=== PATIENT | female | born 2005 | race Caucasian/White ===

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

== ENCOUNTER 2023-06-09 10:32 | Inpatient (IN) | payer BC, SELFPAY ==
[2023-06-09 10:50] VITALS: BP 118/79; PULSE 89; RESP 18; TEMP 36.9; O2SAT 98; BMI 32.2
[2023-06-09 11:41] LABS: Basophils # 0.1 10^3/uL (0.0-0.1); Basophils % 0.4 %; Eosinophils # 0.1 10^3/uL (0.0-0.8); Eosinophils % 0.7 %; Hematocrit 39.4 % (36-47); Lymphocytes # 2.8 10^3/uL (1.5-6.5); Lymphocytes % 20.5 %; Mean Corpuscular HGB Conc 34.3 g/dL (30-55); Mean Corpuscular Hemoglobin 31.7 pg (27-33); Mean Corpuscular Volume 92.5 fl (85-98); Monocytes # 0.6 10^3/uL (0.2-0.9); Monocytes % 4.2 %; Neutrophils # 10.13 10^3/uL (1.8-8.0); Neutrophils % 73.8 %; Nucleated Red Blood Cells % 0 %; Platelet Count 404 10^3/cmm (157-399); Red Blood Count 4.26 10^6/uL (3.85-5.65); Red Cell Distribution Width 11.6 % (12.1-15.1); White Blood Count 13.73 10^3/uL (4.5-13.0)
[2023-06-09 11:57] LABS: Alanine Aminotransferase 172 U/L (0-33); Alkaline Phosphatase 171 U/L (35-105); Anion Gap 14.2 (5-19); Aspartate Amino Transferase 69 U/L (0-32); Blood Urea Nitrogen 10 mg/dL (6-20); Carbon Dioxide 27 mmol/L (22-29); Chloride 102 mmol/L (98-107); Globulin 3.2 g/dL (1.3-4.6); Glomerular Filtration Rate 157.3 mL/min (90-130); Glucose 90 mg/dL (65-115); Lipase 16 U/L (13-60); Osmolality Calculated 287 mOsm/kg (285-295); Potassium 4.2 mmol/L (3.5-5.1); Sodium 139 mmol/L (136-145); Total Bilirubin 0.3 mg/dL (0.15-1.2); Total Protein 8.2 g/dL (6.6-8.7)
[2023-06-09 11:58] LABS: HCG, Serum Qual Negative (Negative)
--- NOTE | 2023-06-09 12:00 | W.ED.ABDPA2 ---
HPI - Abdominal Pain General: Chief Complaint: Abdominal Pain Stated Complaint: physician sent, appendix Time Seen by Provider: 06/09/23 12:00 Source: patient Mode of arrival: ambulatory History of Present Illness: 18-year-old female presents emergency room complaining of right-sided abdominal pain. She has had this intermittently for weeks progressively worse and is worse when she eats anything. No dysuria urgency or frequency no vomiting no diarrhea no fever sweats or chills. No previous abdominal surgeries patient is her last delivery was approximately 5 months ago. MD elicited complaint: abdominal pain Onset (ago): week(s) (1) Location: RUQ and RLQ Severity: moderate Quality: cramping Exacerbating factors: eating Associated Symptoms: Reports anorexia, bloating, GI cramping, nausea and poor appetite; Denies belching, change in bowel habits, change in stool character, chills, coffee ground emesis, constipation, diarrhea, dyspepsia, dysuria, excessive flatus, fever(s), heartburn, hematochezia, hematuria, hematemesis, fecal incontinence, loose stools, melena, syncope, vomiting and other Related Data: Date of Last Menstrual Period: 02/10/23 Review of Systems Const: Denies: fever(s), chills, fatigue or malaise ENMT: Denies: throat pain, ear or mastoid pain, nasal discharge or nasal congestion Card: Denies: chest pain or syncope Resp: Denies: dyspnea, productive cough or non-productive cough GI: Reports: abdominal pain, nausea, bloating and GI cramping; Denies: vomiting, hematemesis, coffee ground emesis, heartburn, diarrhea, constipation, belching, excessive flatus, fecal incontinence, change in bowel habits, change in stool character, hematochezia, melena or other : Denies: dysuria, urinary frequency, urinary urgency or hematuria Skin/Breast: Denies: rash or pruritus PFSH ED PFSH: Medical History (Updated 06/14/23 @ 07:01 by Mihir Roman DO) Acute abdominal pain Family History Grandmother Cancer Breast Cancer Social History Smoking and tobacco status: never smoked Second hand smoke exposure: No Smoking risk assessment/counseling performed?: No Alcohol intake: never Desire information about alcohol rehabilitation?: No Counseling given: No Substance/Drug Use: never Desire information about substance/drug rehabilitation?: No Counseling given: No Adopted: No Caregiver/support person: No Lives independently: Yes Household members: friend(s) Housing: Manufactured/Mobile home Marital status: Single Number of children: 1 Highest education level completed: High School Graduate Current occupational status: employed Female Reproductive History: Date of last menstrual period: 02/10/23 Physical Exam Const: GENERAL APPEARANCE: cooperative and comfortable ORIENTATION/CONSCIOUSNESS: Yes awake, Yes oriented to person, Yes oriented to place and Yes oriented to time HENMT: COMMON NORMALS: normocephalic, atraumatic and hearing grossly normal bilaterally HEAD & SCALP: normocephalic and atraumatic Resp: COMMON NORMALS: normal respiratory effort, No retractions, No use of accessory muscles and clear to auscultation bilaterally AUSCULTATION: clear to auscultation bilaterally Cardio: COMMON NORMALS: regular rate, regular rhythm and No murmurs present (Cardio) RATE: regular rate RHYTHM: regular rhythm GI: COMMON NORMALS: No hepatosplenomegaly present AUSCULTATION: Yes normoactive bowel sounds PALPATION: Yes Tenderness to palpation present (GI) Details: RLQ and RUQ, No Guarding due to palpation present (GI) and Yes No hepatosplenomegaly present Extremity: COMMON NORMALS: normal to inspection, capillary refill normal, no clubbing, cyanosis or edema, no calf tenderness and no pedal edema Neuro: SENSORIUM/ORIENTATION: Yes oriented to person, Yes oriented to place and Yes oriented to time Skin: COMMON NORMALS: no rashes or lesions noted GENERAL SKIN EXAM: no rashes or lesions noted Course Vital Signs: Vital signs: Vital Signs Temperature 97.6 F 06/10/23 14:55 Pulse Rate 79 06/10/23 14:55 Respiratory Rate 15 06/10/23 14:55 Blood Pressure 106/71 06/10/23 14:55 Pulse Oximetry 97 06/10/23 14:55 Oxygen Delivery Me thod Room Air 06/10/23 11:11 MDM - Abdominal Pain Medical Decision Making On presentation suspect the patient had acute cholecystitis however gallbladder appears normal liver functions were elevated but T. bili was normal urine unremarkable CT of the abdomen there is a suspicion for acute appendicitis. Discussed with Dr. Davis who is on-call for surgery he reviewed with the patient recommended observation with IV antibiotics. Orders written. Medical Records I reviewed the patient's medical records. Lab Data I reviewed the patient's lab results. 06/10/23 06:18 06/10/23 06:18 Labs/Radiology: Laboratory Results WBC 13.73 10^3/uL (4.5-13.0) H 06/09/23 11:32 RBC 4.26 10^6/uL (3.85-5.65) 06/09/23 11:32 Hgb 13.50 g/dL (12.4-14.8) 06/09/23 11:32 Hct 39.4 % (36-47) 06/09/23 11:32 MCV 92.5 fl (85-98) 06/09/23 11:32 MCH 31.7 pg (27-33) 06/09/23 11:32 MCHC 34.3 g/dL (30-55) 06/09/23 11:32 RDW 11.6 % (12.1-15.1) L 06/09/23 11:32 Plt Count 404 10^3/cmm (157-399) H 06/09/23 11:32 MPV 9.0 fL (7.4-10.4) 06/09/23 11:32 Neut % (Auto) 73.8 % 06/09/23 11:32 Lymph % (Auto) 20.5 % 06/09/23 11:32 [place] % (Auto) 4.2 % 06/09/23 11:32 Eos % (Auto) 0.7 % 06/09/23 11:32 Baso % (Auto) 0.4 % 06/09/23 11:32 Neut # (Auto) 10.13 10^3/uL (1.8-8.0) H 06/09/23 11:32 Lymph # (Auto) 2.8 10^3/uL (1.5-6.5) 06/09/23 11:32 [place] # (Auto) 0.6 10^3/uL (0.2-0.9) 06/09/23 11:32 Eos # (Auto) 0.1 10^3/uL (0.0-0.8) 06/09/23 11:32 Baso # (Auto) 0.1 10^3/uL (0.0-0.1) 06/09/23 11:32 Nucleated RBC % (auto) 0 % 06/09/23 11:32 Nucleated RBCs # 0.0 /100WBC 06/09/23 11:32 Sodium 139 mmol/L (136-145) 06/09/23 11:32 Potassium 4.2 mmol/L (3.5-5.1) 06/09/23 11:32 Chloride 102 mmol/L (98-107) 06/09/23 11:32 Carbon Dioxide 27 mmol/L (22-29) 06/09/23 11:32 Anion Gap 14.2 (5-19) 06/09/23 11:32 BUN 10 mg/dL (6-20) 06/09/23 11:32 Creatinine 0.5 mg/dL (0.5-0.9) 06/09/23 11:32 GFR Calculation 157.3 mL/min (90-130) H 06/09/23 11:32 Glucose 90 mg/dL (65-115) 06/09/23 11:32 Calculated Osmolality 287 mOsm/kg (285-295) 06/09/23 11:32 Calcium 10.0 mg/dL (8.5-10.5) 06/09/23 11:32 Total Bilirubin 0.3 mg/dL (0.15-1.2) 06/09/23 11:32 AST 69 U/L (0-32) H 06/09/23 11:32 ALT 172 U/L (0-33) H 06/09/23 11:32 Alkaline Phosphatase 171 U/L (35-105) H 06/09/23 11:32 Total Protein 8.2 g/dL (6.6-8.7) 06/09/23 11:32 Albumin 5.0 g/dL (3.5-5.2) 06/09/23 11:32 Globulin 3.2 g/dL (1.3-4.6) 06/09/23 11:32 Lipase 16 U/L (13-60) 06/09/23 11:32 HCG, Qual Negative (Negative) 06/09/23 11:32 Urine Color Yellow (Yellow) 06/09/23 13:00 Urine Appearance Clear (CLEAR) 06/09/23 13:00 Urine pH 5 (5-7) 06/09/23 13:00 Ur Specific [place] 1.010 (1.005-1.030) 06/09/23 13:00 Urine Protein Neg (Negative) 06/09/23 13:00 Urine Glucose (UA) Norm (Normal) 06/09/23 13:00 Urine Ketones Negative (Negative) 06/09/23 13:00 Urine Blood Trace (Negative) H 06/09/23 13:00 Urine Nitrate Negative (Negative) 06/09/23 13:00 Urine Bilirubin Neg (Negative) 06/09/23 13:00 Urine Urobilinogen Norm mg/dL (Negative) 06/09/23 13:00 Ur Leukocyte Esterase Negative (Negative) 06/09/23 13:00 Urine RBC Rare /hpf (0-2) 06/09/23 13:00 Urine WBC Rare /hpf (0-5) 06/09/23 13:00 Ur Squamous Epith Cells 0-4 /hpf (0-5) H 06/09/23 13:00 Amorphous Sediment Not Reportable 06/09/23 13:00 Urine Bacteria Trace /hpf (NONE) 06/09/23 13:00 Hepatitis A IgM Ab Non-reactive (Nonreactive) 06/09/23 11:32 Hep Bs Antigen Non-reactive (Nonreactive) 06/09/23 11:32 Hep B Core IgM Ab Non-reactive (Nonreactive) 06/09/23 11:32 Hepatitis C Antibody Non-reactive (Nonreactive) 06/09/23 11:32 Discharge Plan Discharge Patient Disposition: Admitted As Inpatient Admit Provider: Jayjay Davis Clinical Impression: Acute appendicitis Condition: Stable Discharge Diet: Usual diet Discharge Activity: Resume usual activity Coding Level of Care Code ED Experimental [employer] for Deyanira Sumner
--- NOTE | 2023-06-09 12:26 | US_ITS ---
WS: [id number] RIGHT UPPER QUADRANT ULTRASOUND HISTORY: abd pain, elevated LFTs COMPARISON: None available. Liver: 13.7 cm in length. Normal size liver and echogenicity. No bile duct dilatation or mass. Portal Vein: Normal hepatopetal flow with monophasic waveform. Gallbladder: Normally distended gallbladder with no stones or wall thickening. CBD: 0.3 cm Pancreas: Normal size and echogenicity. Right kidney: 9.8 cm in length. Normal size and echogenicity. No hydronephrosis or mass. Aorta and IVC: Unremarkable abdominal aorta and IVC. No ascites. IMPRESSION: Normal RIGHT upper quadrant ultrasound.
--- NOTE | 2023-06-09 13:45 | CT_ITS ---
WS: [id number] CT ABDOMEN AND PELVIS NONCONTRAST HISTORY: Abdominal pain TECHNIQUE: Imaging performed through the abdomen and pelvis. Coronal and sagittal reformats are submi tted. All CT scans at [facility] use at least one of these dose optimization techniques: auto mated exposure control; mA and/or kV adjustment per patient size (includes targeted exams where dose is matched to clinical indication); or iterative reconstruction. DLP: 765.27 mGy.cm COMPARISON: None available. Lower thorax: Lung bases are clear. Visualized heart is normal. No hiatal hernia. Liver: Normal size liver. No mass or bile duct dilatation. Gallbladder: Normal gallbladder. No pericholecystic fluid or cholelithiasis. No gallbladder wall thic kening. Pancreas: Normal size and attenuation. Normal pancreatic duct. No pancreatitis or mass. Spleen: Normal. Adrenal glands: Normal. No mass. Right kidney: Normal size kidney with no mass or hydronephrosis. Left kidney: Normal size kidney with no mass or hydronephrosis. Aorta: Normal abdominal aorta, no aneurysm or atherosclerosis. No free fluid, intraperitoneal air or significant lymphadenopathy. Numerous small central mesenteric lymph nodes. These may be reactive. GI tract: Acute inflammatory process in the pelvis. There is a blind-ending low with wall thickening and a small amount of air measuring 14 mm. This does appear blind-ending but there is also an adjacen t loop which appears to be the appendix. There is also a 3 mm calcification which may be a phlebolith . No abscess. Diffuse constipation. Abdominal wall: Negative. No hernia. Pelvis: Normal uterus. Tiny physiologic amount of free fluid. Osseous structures: Unremarkable. IMPRESSION: 1. Acute inflammatory process in the RIGHT lower quadrant extending to the midline. Favor this is pr obably acute appendicitis with an appendicolith at the base of the appendix. There is a small adjacen t loop which does appear to be residual normal appendix. No abscess. Alternatively this may represent ileitis but thought less likely due to the calcification. 2. Tiny amount of free fluid in the cul-de-sac. Notified Mihir Roman DO at 06/09/2023 2:25 PM.
--- NOTE | 2023-06-09 14:23 | PC.NURSE ---
nurse assumed care at 13:25
[2023-06-09 14:29] LABS: Hepatitis A Antibody IgM Non-Reactive (Nonreactive); Hepatitis B Core IgM Non-Reactive (Nonreactive); Hepatitis B Surface Antigen Non-Reactive (Nonreactive); Hepatitis C Virus Antibody Non-Reactive (Nonreactive)
[2023-06-09 14:52] LABS: Add Urine Microscopic? YES; Bilirubin Urine Neg (Negative); Blood Urine Trace (Negative); Glucose Urine UA Norm (Normal); Ketones Urine Negative (Negative); Leukocyte Esterase Urine Negative (Negative); Nitrate Urine Negative (Negative); Protein Urine Neg (Negative); Urine Appearance Clear (CLEAR); Urine Color Yellow (Yellow); Urobilinogen Urine Norm (Negative); pH Urine 5 (5-7)
[2023-06-09 14:53] LABS: Add Urine Culture? No; Bacteria Urine TRACE /hpf; RBC Urine RARE /hpf (0-2); Squamous Epithelial Cell Urine 0-4 /hpf (0-5); WBC Urine RARE /hpf (0-5)
[2023-06-09] MEDS: ondansetron 2 mg/ML SDV 2 mL 4 MG IVP (15:03)
[2023-06-09 15:04] VITALS: RESP 15; O2SAT 95
[2023-06-09] MEDS: morphine 4 mg/mL SDV 1 mL IVP (15:04)
[2023-06-09 15:21] VITALS: BP 134/85; PULSE 96; O2SAT 98
[2023-06-09] MEDS: piperacillin-tazobactam 3.375 GM in sodium chloride 0.9% (plus) 50 ML IV ×2 (16:07→23:26)
[2023-06-09 16:36] VITALS: BP 113/62; PULSE 91; O2SAT 96
--- NOTE | 2023-06-09 17:12 | P.HP_ITS ---
Providers/Chief Complaint Admitting Physician: Jayjay Davis MD Primary Care Provider: Troy Song MD Chief Complaint: physician sent, appendix History of Present Illness Shayne Choudhury is a 18 year old female who presented to the emergency room complaining of 1 week of lower abdominal pain. Patient states that about 1-1 and half week ago she started having upper respiratory infection after which she developed lower abdominal pain, cramping, diarrhea. The pain has been worsening over the last 2 to 3 days it has become constant. Patient has continued to have appetite, has continued to have bowel function. Denies any fever chills or any other symptoms. On the emergency department initial evaluation showed a white count of 13,000, initial assessment was concern for possible acute cholecystitis therefore a right upper quadrant ultrasound was done which was negative due to the negative ultrasound decided to proceed with a CT scan of the abdomen and pel vis. The CT scan of the abdomen and pelvis show evidence of inflammatory process in the right lower quadrant terminal ileitis versus acute appendicitis, the findings were equivocal. I was consulted for this finding. Medications/Allergies Home Medications Medication Instructions Recorded Confirmed Last Taken Type No Known Home Medications 06/09/23 06/09/23 Unknown History Allergies Allergy/AdvReac Type Severity Reaction Status Date / Time fentanyl Allergy Unknown HEADACHE, Verified 06/09/23 10:50 VOMITING, STOMACH PAIN PFSH Acute PFSH: Family History Grandmother Cancer Breast Cancer Social History Smoking and tobacco status: never smoked Second hand smoke exposure: No Smoking risk assessment/counseling performed?: No Alcohol intake: never Desire information about alcohol rehabilitation?: No Counseling given: No Substance/Drug Use: never Desire information about substance/drug rehabilitation?: No Counseling given: No Adopted: No Caregiver/support person: No Lives independently: Yes Household members: friend(s) Housing: Manufactured/Mobile home Marital status: Single Number of children: 1 Highest education level completed: High School Graduate Current occupational status: employed Female Reproductive History: Date of last menstrual period: 02/10/23 Vitals/I&O/Wt Last Vital Signs Temp 98.5 F 06/09/23 10:50 Pulse 91 08/28/23 16:36 Resp 15 06/09/23 15:04 BP 113/62 06/09/23 16:36 Pulse Ox 96 06/09/23 16:36 O2 Del Method Room Air 06/09/23 16:36 Weight last 48 hrs Weight 188 lb Physical Exam Const: OTHER: General : Patient is well developed , no acute distress, oriented x3 Head : Normal cephalic, a-traumatic. Nose : Mucous membranes are without erythema. Lungs : Equal chest rise bilaterally, no use of accessory muscles, trachea is midline. CV : Rate and rhythm are normal. Abdomen : Soft, there is tenderness to palpation in the suprapubic periumbilical and right lower quadrant regions, no evidence of rebound tenderness, no peritoneal signs. Extremities : No edema. Upper extremities are normal bilaterally. Back : non-tender to palpation, no CVA tenderness. Data 06/09/23 11:32 06/09/23 11:32 A&P Assessment and plan (1) Acute abdominal pain: (2) Appendicitis: Plan After complete history, physical examination and review of all available clinical data the following is my assessment. Patient has been in usual presentation for possible acute appendicitis. Her symptoms may be related to terminal ileitis versus acute appendicitis, the fact that she had a previous respiratory infection also points to a possible terminal ileitis. I have explained to the patient that our options at this point are 1 admission for IV antibiotics and observation or to proceed directly to surgery for diagnostic laparoscopy and possible appendectomy. I have explained that in the case of being acute appendicitis the treatment with antibiotics will likely be effective up to him to 75% of patients. I also explained that even without effective treatment this does not preclude her from having recurrent appendicitis in the future. After extensive discussion about the possible outcomes, patient has decided to proceed with admission for IV antibiotics, we will monitor white count and clinical examination. If patient does not show an improvement in the next 24 hours the next step will be to proceed for laparoscopic appendectomy. Ample time was given to answer any questions, all questions were answered in satisfactory fashion and patient is agreeable with the plan. -Admit to surgery -N.p.o. -IV fluids -IV antibiotics -Toradol IV -Ambulate as tolerated. Attestations Medical Necessity Statement*: Patient admitted for terminal ileitis versus acute appendicitis, will start with nonoperative management length of the stay is planned for 48 hours. Coding Level of Care Code 14201 Diagnoses Acute abdominal pain R10.9 Appendicitis K37
[2023-06-09] MEDS: D5-NS 0.45% + KCL 20 mEq 20 MEQ/1,000 ML BAG 125 MEQ IV (18:22)
[2023-06-09] MEDS: ketorolac 30 mg/mL INJ 15 MG IVP ×2 (18:22→23:25)
[2023-06-09 20:12] VITALS: BP 92/62; PULSE 83; RESP 17; TEMP 36.6; O2SAT 97
[2023-06-10] VITALS: BP 100/66; PULSE 66; RESP 17; TEMP 36.8; O2SAT 98
[2023-06-10] MEDS: D5-NS 0.45% + KCL 20 mEq 20 MEQ/1,000 ML BAG 125 MEQ IV ×2 (02:13→10:26)
[2023-06-10 04:00] VITALS: BP 95/60; PULSE 69; RESP 17; TEMP 36.6; O2SAT 98
[2023-06-10] MEDS: piperacillin-tazobactam 3.375 GM in sodium chloride 0.9% (plus) 50 ML IV (06:15)
[2023-06-10] MEDS: ketorolac 30 mg/mL INJ 15 MG IVP ×2 (06:15→11:52)
[2023-06-10 06:36] LABS: Basophils % 0.5 %; Eosinophils # 0.2 10^3/uL (0.0-0.8); Eosinophils % 2.5 %; Hematocrit 34.5 % (36-47); Lymphocytes # 2.5 10^3/uL (1.5-6.5); Lymphocytes % 38.8 %; Mean Corpuscular HGB Conc 33.3 g/dL (30-55); Mean Corpuscular Hemoglobin 31.2 pg (27-33); Mean Corpuscular Volume 93.5 fl (85-98); Mean Platelet Volume 9.1 fL (7.4-10.4); Monocytes # 0.5 10^3/uL (0.2-0.9); Monocytes % 7.2 %; Neutrophils # 3.25 10^3/uL (1.8-8.0); Neutrophils % 50.7 %; Nucleated Red Blood Cells % 0 %; Platelet Count 296 10^3/cmm (157-399); Red Blood Count 3.69 10^6/uL (3.85-5.65); Red Cell Distribution Width 11.6 % (12.1-15.1)
[2023-06-10 06:51] LABS: Alanine Aminotransferase 106 U/L (0-33); Albumin Level 4.1 g/dL (3.5-5.2); Alkaline Phosphatase 127 U/L (35-105); Anion Gap 10.4 (5-19); Aspartate Amino Transferase 28 U/L (0-32); Blood Urea Nitrogen 11 mg/dL (6-20); Calcium 8.9 mg/dL (8.5-10.5); Carbon Dioxide 28 mmol/L (22-29); Chloride 104 mmol/L (98-107); Globulin 2.7 g/dL (1.3-4.6); Glomerular Filtration Rate 106.7 mL/min (90-130); Glucose 98 mg/dL (65-115); Osmolality Calculated 285 mOsm/kg (285-295); Potassium 4.4 mmol/L (3.5-5.1); Sodium 138 mmol/L (136-145); Total Bilirubin 0.4 mg/dL (0.15-1.2); Total Protein 6.8 g/dL (6.6-8.7)
--- NOTE | 2023-06-10 07:05 | P.PN_ITS ---
Subjective Subjective: 18-year-old female who was admitted to the hospital with right lower quadrant and suprapubic abdominal pain, CT findings nonspecific for acute appendicitis versus terminal ileitis. Patient has responded very well to the nonoperative management. This morning she is asymptomatic, abdominal pain has resolved. Vitals/I&O/Wt Last Vital Signs Temp 97.9 F 06/10/23 04:00 Pulse 69 06/10/23 04:00 Resp 17 06/10/23 04:00 BP 95/60 06/10/23 04:00 Pulse Ox 98 06/10/23 04:00 O2 Del Method Room Air 06/09/23 18:39 06/09/23 06/10/23 06/10/23 22:59 06:59 14:59 Intake Total 50 / 50 1031.25 / 1081.25 Balance 50 / 50 1031.25 / 1081.25 Weight last 48 hrs Weight 188 lb Physical Exam Narrative: General : Patient is well developed , no acute distress, oriented x3 Head : Normal cephalic, a-traumatic. Nose : Mucous membranes are without erythema. Lungs : Equal chest rise bilaterally, no use of accessory muscles, trachea is midline. CV : Rate and rhythm are normal. Abdomen : Soft, nontender to the suprapubic and right lower quadrant region. No peritoneal signs Extremities : No edema. Upper extremities are normal bilaterally. Back : non-tender to palpation, no CVA tenderness. Data 06/10/23 06:18 06/10/23 06:18 A&P Assessment and plan (1) Terminal ileitis: Plan 18-year-old female admitted to the hospital for nonoperative management of possible terminal ileitis versus appendicitis. Patients with clinical response to antibiotics may favor terminal ileitis as diagnosis. Patient has responded very well to treatment. We will continue IV antibiotics, will do trial of p.o. If patient is tolerating p.o. likely discharge this afternoon with p.o. antibiotics. Attestations Medical Necessity Statement*: P.o. trial today, possible discharge in the afternoon Coding Level of Care Code Acute Code for [facility] Diagnoses Terminal ileitis K50.00
[2023-06-10 07:23] VITALS: PULSE 63; RESP 16; TEMP 36.6; O2SAT 98
[2023-06-10 11:11] VITALS: BP 106/71; PULSE 79; RESP 15; TEMP 36.4; O2SAT 97
--- NOTE | 2023-06-10 13:21 | P.DS_ITS ---
Discharge Providers Date of Admission: 06/09/23 15:31 Date of Discharge: June 10, 2023 Attending Provider at Admission: Jayjay Davis MD Attending Provider at Discharge: Jayjay Davis MD Primary Care Provider: Troy Song MD Diagnoses at Discharge Discharge Diagnosis (1) Terminal ileitis: Status: Acute Reason for Visit Reason for Visit: physician sent, appendix Hospital Course Hospital Course 18-year-old female who presented with lower abdomen right lower quadrant pain for the last 7 days, per patient report she has started having this pain after upper respiratory illness. Pain so significantly became worse, she also pain cramping with eating. On the emergency department a CT scan was done and the CT scan was equivocal called for possibility of terminal ileitis versus acute appendicitis. After my evaluation I offered the patient the option of IV antibiotics or surgery's at that point both of them were appropriate choices. After further discussion of risk and benefits of both therapies patient decided to undergo conservative management with IV antibiotics. Patient was admitted to the hospital IV antibiotics were started, hospital day 1 patient was doing very well abdominal pain had completely resolved there was no tenderness in the right lower quadrant patient tolerated diet and was ambulating having bowel movements and therefore she was ready for discharge. Physical Exam Narrative: General : Patient is well developed , no acute distress, oriented x3 Head : Normal cephalic, a-traumatic. Nose : Mucous membranes are without erythema. Lungs : Equal chest rise bilaterally, no use of accessory muscles, trachea is midline. CV : Rate and rhythm are normal. Abdomen : Soft, ND, NT, no g/r/m Extremities : No edema. Upper extremities are normal bilaterally. Back : non-tender to palpation, no CVA tenderness. Discharge Data Studies Completed and Pending Completed Studies During Hospitalization Category Date Time Status CT abdomen pelvis wo con [id number] Stat Cat Scan 06/09/23 13:45 Completed US gall bladder [id number] Stat Ultrasound 06/09/23 12:26 Completed Laboratory Results WBC 6.40 10^3/uL (4.5-13.0) 06/10/23 06:18 RBC 3.69 10^6/uL (3.85-5.65) L 06/10/23 06:18 Hgb 11.50 g/dL (12.4-14.8) L 06/10/23 06:18 Hct 34.5 % (36-47) L 06/10/23 06:18 MCV 93.5 fl (85-98) 06/10/23 06:18 MCH 31.2 pg (27-33) 06/10/23 06:18 MCHC 33.3 g/dL (30-55) 06/10/23 06:18 RDW 11.6 % (12.1-15.1) L 06/10/23 06:18 Plt Count 296 10^3/cmm (157-399) 06/10/23 06:18 MPV 9.1 fL (7.4-10.4) 06/10/23 06:18 Neut % (Auto) 50.7 % 06/10/23 06:18 Lymph % (Auto) 38.8 % 06/10/23 06:18 [place] % (Auto) 7.2 % 06/10/23 06:18 Eos % (Auto) 2.5 % 06/10/23 06:18 Baso % (Auto) 0.5 % 06/10/23 06:18 Neut # (Auto) 3.25 10^3/uL (1.8-8.0) 06/10/23 06:18 Lymph # (Auto) 2.5 10^3/uL (1.5-6.5) 06/10/23 06:18 [place] # (Auto) 0.5 10^3/uL (0.2-0.9) 06/10/23 06:18 Eos # (Auto) 0.2 10^3/uL (0.0-0.8) 06/10/23 06:18 Baso # (Auto) 0.0 10^3/uL (0.0-0.1) 06/10/23 06:18 Nucleated RBC % (auto) 0 % 06/10/23 06:18 Nucleated RBCs # 0.0 /100WBC 06/10/23 06:18 Sodium 138 mmol/L (136-145) 06/10/23 06:18 Potassium 4.4 mmol/L (3.5-5.1) 06/10/23 06:18 Chloride 104 mmol/L (98-107) 06/10/23 06:18 Carbon Dioxide 28 mmol/L (22-29) 06/10/23 06:18 Anion Gap 10.4 (5-19) 06/10/23 06:18 BUN 11 mg/dL (6-20) 06/10/23 06:18 Creatinine 0.7 mg/dL (0.5-0.9) 06/10/23 06:18 GFR Calculation 106.7 mL/min (90-130) 06/10/23 06:18 Glucose 98 mg/dL (65-115) 06/10/23 06:18 Calculated Osmolality 285 mOsm/kg (285-295) 06/10/23 06:18 Calcium 8.9 mg/dL (8.5-10.5) 06/10/23 06:18 Total Bilirubin 0.4 mg/dL (0.15-1.2) 06/10/23 06:18 AST 28 U/L (0-32) 06/10/23 06:18 ALT 106 U/L (0-33) H 06/10/23 06:18 Alkaline Phosphatase 127 U/L (35-105) H 06/10/23 06:18 Total Protein 6.8 g/dL (6.6-8.7) 06/10/23 06:18 Albumin 4.1 g/dL (3.5-5.2) 06/10/23 06:18 Globulin 2.7 g/dL (1.3-4.6) 06/10/23 06:18 Lipase 16 U/L (13-60) 06/09/23 11:32 HCG, Qual Negative (Negative) 06/09/23 11:32 Urine Color Yellow (Yellow) 06/09/23 13:00 Urine Appearance Clear (CLEAR) 06/09/23 13:00 Urine pH 5 (5-7) 06/09/23 13:00 Ur Specific [place] 1.010 (1.005-1.030) 06/09/23 13:00 Urine Protein Neg (Negative) 06/09/23 13:00 Urine Glucose (UA) Norm (Normal) 06/09/23 13:00 Urine Ketones Negative (Negative) 06/09/23 13:00 Urine Blood Trace (Negative) H 06/09/23 13:00 Urine Nitrate Negative (Negative) 06/09/23 13:00 Urine Bilirubin Neg (Negative) 06/09/23 13:00 Urine Urobilinogen Norm mg/dL (Negative) 06/09/23 13:00 Ur Leukocyte Esterase Negative (Negative) 06/09/23 13:00 Urine RBC Rare /hpf (0-2) 06/09/23 13:00 Urine WBC Rare /hpf (0-5) 06/09/23 13:00 Ur Squamous Epith Cells 0-4 /hpf (0-5) H 06/09/23 13:00 Amorphous Sediment Not Reportable 06/09/23 13:00 Urine Bacteria Trace /hpf (NONE) 06/09/23 13:00 Hepatitis A IgM Ab Non-reactive (Nonreactive) 06/09/23 11:32 Hep Bs Antigen Non-reactive (Nonreactive) 06/09/23 11:32 Hep B Core IgM Ab Non-reactive (Nonreactive) 06/09/23 11:32 Hepatitis C Antibody Non-reactive (Nonreactive) 06/09/23 11:32 Vitals Last Vital Signs Temp 97.6 F 06/10/23 11:11 Pulse 79 06/10/23 11:11 Resp 15 06/10/23 11:11 BP 106/71 06/10/23 11:11 Pulse Ox 97 06/10/23 11:11 O2 Del Method Room Air 06/10/23 11:11 Discharge Plan Discharge Patient Disposition: Home Condition: Stable Prescriptions: New meloxicam 7.5 mg tablet 7.5 mg PO DAILY Qty: 7 0RF amoxicillin-pot clavulanate 875-125 mg tablet 1 tab PO BID 7 Days Qty: 14 0RF No Action No Known Home Medications Discharge Orders: Discharge Order (Routine); Ordered 06/10/23 Ordered By: Jayjay Davis Referrals: Troy Song MD [Primary Care Provider] - Jayjay Davis MD [Physician] - (2 weeks) Discharge Diet: Usual diet Discharge Activity: Resume usual activity Patient Instructions: Opioid Safety Activity Restrictions/Additional Instructions: Please return to the hospital in view of patient's increasing abdominal pain, nausea vomit, fever. Please ensure to take all your antibiotics even if you are feeling okay. Discharge Attestations Time Spent in Discharge Care*: less than 30 min Quality Metrics Clinical Quality Measures [ No reported AMI, CVA or VTE this stay] Coding Level of Care Code Acute Code for g Fwd Diagnoses Terminal ileitis K50.00
[2023-06-10 14:55] VITALS: BP 106/71; PULSE 79; RESP 15; TEMP 36.4; O2SAT 97
--- NOTE | 2023-06-10 14:57 | PC.NURSE ---
Patient discharged and taken outside via wheelchair to private vehicle. Discharge instuctions given and patient has no questions at this time. at side.
== END 2023-06-10 14:58 | disposition home or self-care (01) | DRG 387 ==
LOC: ER 12:01 → MEDSURG 16:35
PROVIDERS: Physician Assistant; Admitting Provider Surgery; Emergency Provider Family Medicine; PCP Family Medicine; Visit Provider Surgery
DX: K50.00 Crohn's disease of small intestine without complications (principal)
CPT/HCPCS: 36415; 74176; 76705; 80053; 80074; 81001; 83690; 84703; 85025; 96365; 96375; 99285; J1885; J2270; J2405; J2543

== ENCOUNTER 2023-09-25 02:03 | Observation (INO) | payer BC, MEDICAID, SELFPAY ==
[2023-09-25] VITALS (22 sets, daily range): BP systolic 85–131; BP diastolic 44–88; PULSE 15–95; RESP 14–26; TEMP 36.2–37.1; O2SAT 95–100; BMI 34.9
--- NOTE | 2023-09-25 02:11 | ED_ITS ---
HPI - Nausea/Vomiting/Diarrhea 2 General: Chief complaint: Nausea/Vomiting/Diarrhea Stated complaint: abd, n/v Time Seen by Provider: 09/25/23 02:07 History of Present Illness: 18-[facility] complaints of single episode of nausea and vomiting. She states she is also had some RLQ abdominal pain. She states that she was seen here in the emergency department on 06/09/2023 for inflammation of her bowels. She states she has generalized abdominal pain that is a 2 out of 10. She states she had 4 episodes of watery diarrhea tonight as well. She denies fevers chills or night sweats. Associated nausea: Yes Associated symtoms: Reports nausea Review of Systems 2 General: Reports: 10 or more systems reviewed and unremarkable except in HPI and below GI: Reports: abdominal pain, nausea, vomiting and diarrhea PFS ED 2 PFSH: Medical History (Updated 09/25/23 @ 04:30 by Kwaku Ayala MD) Acute abdominal pain Family History Grandmother Cancer Breast Cancer Social History Smoking and tobacco/nicotine status: never used tobacco/nicotine Second hand smoke exposure: No Alcohol intake: never Substance/Drug Use: never Adopted: No Caregiver/support person: No Lives independently: Yes Household members: friend(s) Housing: Manufactured/Mobile home Marital status: Single Number of children: 1 Highest education level completed: High School Graduate Current occupational status: employed Physical Exam 2 Narrative: EXAM NARRATIVE: Constitutional: the patient appears well nourished and with normal development. Vital signs reviewed as documented. HENMT: Normocephalic, atraumatic. Extermal ears with normal appearance without drainage. Nose without drainage, normal appearance. Mucus membranes moist. Neck is supple, No jugular venous distension, trachea is midline, no appreciable carotid bruits. No lymphadenopathy. No meningeal signs. Flexion, extension and lateral rotation is without pain. Eyes: Pupils are equal, round, reactive to light and accommodation. No scleral icterus. Extra-ocular movement are intact. Thorax is symmetrical and with equal rise and fall with respirations. Resp: Lungs are clear to auscultation. No wheezes, rales, crackles or ronchi at present. Cardio: Regular rate and rhythm. Positive S1, S2. No appreciable murmurs, rubs or gallops. GI: Abdominal exam reveals normal bowel sounds to all quadrants. No organomegaly. No obvious palpable masses noted. No hepatomegally appreciated. Soft, tender to palpation to RLQ-concerning for appendicitis. Extremity: Extremities are non-edematous and both femoral and pedal pulses are 2+ and equal bilaterally. Moves all extremities well, sensation in all extremities. Neuro: Alert and oriented x4, person, place, time and situation. Cranial nerves II through XII are grossly intact, there is no focal neurological deficits that I can appreciate at present. Motor strength in the upper and lower extremities are equal and bilateral 5/5. Psych: Cooperative, calm, normal thought process, appropriate judgment. Skin: No lesions, rashes. No gross abnormalities noted. Back: Symmetrical, no obvious deformity, No CVA tenderness Course 2 Vital Signs: Vital signs: Vital Signs Temperature 98.7 F 09/25/23 02:11 Pulse Rate 83 09/25/23 04:48 Respiratory Rate 16 09/25/23 04:48 Blood Pressure 121/58 09/25/23 04:48 Pulse Oximetry 100 09/25/23 04:48 Oxygen Delivery Me thod Room Air 09/25/23 04:48 MDM - Nausea/Vomiting/Diarrhea Medical Decision Making Physical exam completed and documented, I will obtain laboratory evaluation to include a CBC, CMP, lipase, urinalysis, and a CT scan of the patient's abdomen pelvis to evaluate for possible differential diagnosis of bowel obstruction, incarcerated hernia, abdominal wall strain, abdominal wall hematoma, constipation. I will provide the patient IV access and IV fluid as well as a CT scan abdomen pelvis with contrast for evaluation for possible colitis, acute appendicitis, diverticulitis. Medical Records I reviewed the patient's medical records. Lab Data I reviewed the patient's lab results. 09/25/23 02:14 09/25/23 02:14 Radiology Impressions Abdomen/Pelvis CT 09/25/23 02:13 IMPRESSION: Acute appendicitis. ADDENDUM: 09/25/23 0427 THIS REPORT CONTAINS FINDINGS THAT MAY BE CRITICAL TO PATIENT CARE. The findings were verbally communicated via telephone conference with KWAKU AYALA at 4:26 AM FLOORWORKER LASTING on 09/25/2023. The findings were acknowledged and understood. Laboratory Results WBC 19.57 10^3/uL (4.5-13.0) H 09/25/23 02:14 RBC 4.13 10^6/uL (3.85-5.65) 09/25/23 02:14 Hgb 13.30 g/dL (12.4-14.8) 09/25/23 02:14 Hct 38.7 % (36-47) 09/25/23 02:14 MCV 93.7 fl (85-98) 09/25/23 02:14 MCH 32.2 pg (27-33) 09/25/23 02:14 MCHC 34.4 g/dL (30-55) 09/25/23 02:14 RDW 12.1 % (12.1-15.1) 09/25/23 02:14 Plt Count 368 10^3/cmm (157-399) 09/25/23 02:14 MPV 9.3 fL (7.4-10.4) 09/25/23 02:14 Neut % (Auto) 83.0 % 09/25/23 02:14 Lymph % (Auto) 11.4 % 09/25/23 02:14 Knott % (Auto) 4.5 % 09/25/23 02:14 Eos % (Auto) 0.6 % 09/25/23 02:14 Baso % (Auto) 0.2 % 09/25/23 02:14 Neut # (Auto) 16.25 10^3/uL (1.8-8.0) H 09/25/23 02:14 Lymph # (Auto) 2.2 10^3/uL (1.5-6.5) 09/25/23 02:14 Knott # (Auto) 0.9 10^3/uL (0.2-0.9) 09/25/23 02:14 Eos # (Auto) 0.1 10^3/uL (0.0-0.8) 09/25/23 02:14 Baso # (Auto) 0.0 10^3/uL (0.0-0.1) 09/25/23 02:14 Nucleated RBC % (auto) 0 % 09/25/23 02:14 Nucleated RBCs # 0.0 /100WBC 09/25/23 02:14 Sodium 136 mmol/L (136-145) 09/25/23 02:14 Potassium 3.7 mmol/L (3.5-5.1) 09/25/23 02:14 Chloride 100 mmol/L (98-107) 09/25/23 02:14 Carbon Dioxide 26 mmol/L (22-29) 09/25/23 02:14 Anion Gap 13.7 (5-19) 09/25/23 02:14 BUN 13 mg/dL (6-20) 09/25/23 02:14 Creatinine 0.7 mg/dL (0.5-0.9) 09/25/23 02:14 GFR Calculation 106.7 mL/min (90-130) 09/25/23 02:14 Glucose 105 mg/dL (65-115) 09/25/23 02:14 Calculated Osmolality 282 mOsm/kg (285-295) L 09/25/23 02:14 Lactic Acid 1.2 mmol/L (0.5-2.2) 09/25/23 02:14 Calcium 9.3 mg/dL (8.5-10.5) 09/25/23 02:14 Total Bilirubin 0.2 mg/dL (0.15-1.2) 09/25/23 02:14 AST 15 U/L (0-32) 09/25/23 02:14 ALT 17 U/L (0-33) 09/25/23 02:14 Alkaline Phosphatase 137 U/L (35-105) H 09/25/23 02:14 Total Protein 7.9 g/dL (6.6-8.7) 09/25/23 02:14 Albumin 4.4 g/dL (3.5-5.2) 09/25/23 02:14 Globulin 3.5 g/dL (1.3-4.6) 09/25/23 02:14 Lipase 16 U/L (13-60) 09/25/23 02:14 Procalcitonin 0.02 ng/mL (0-0.5) 09/25/23 02:14 HCG, Qual Negative (Negative) 09/25/23 02:18 Urine Color Yellow (Yellow) 09/25/23 02:18 Urine Appearance Sl hazy (CLEAR) A 09/25/23 02:18 Urine pH 6.5 (5-7) 09/25/23 02:18 Ur Specific [place] 1.020 (1.005-1.030) 09/25/23 02:18 Urine Protein Trace (Negative) 09/25/23 02:18 Urine Glucose (UA) Norm (Normal) 09/25/23 02:18 Urine Ketones Negative (Negative) 09/25/23 02:18 Urine Blood 3+ (Negative) H 09/25/23 02:18 Urine Nitrate Negative (Negative) 09/25/23 02:18 Urine Bilirubin Neg (Negative) 09/25/23 02:18 Urine Urobilinogen Neg mg/dL (Negative) 09/25/23 02:18 Ur Leukocyte Esterase Trace (Negative) H 09/25/23 02:18 Urine RBC 5-10 /hpf (0-2) H 09/25/23 02:18 Urine WBC 0-4 /hpf (0-5) H 09/25/23 02:18 Ur Squamous Epith Cells 10-15 /hpf (0-5) H 09/25/23 02:18 Amorphous Sediment Not Reportable 09/25/23 02:18 Urine Bacteria 1+ /hpf (NONE) H 09/25/23 02:18 Influenza Type A Ag negative (Negative) 09/25/23 02:27 Influenza Type B Ag negative (Negative) 09/25/23 02:27 SARS-CoV-2 Ag (Rapid) negative (Negative) 09/25/23 02:27 Group A Strep Rapid Negative (Negative) 09/25/23 02:27 All radiology interpretation(s) finalized by discharge Discharge Plan Discharge Patient Disposition: Admitted As Inpatient Admit Provider: Dewayne Masters Clinical Impression: Acute appendicitis Condition: Stable Coding Level of Care Code ED Business Continuity Strategy Director for Deyanira Sumner
--- NOTE | 2023-09-25 02:13 | CTR_ITS ---
PROCEDURE INFORMATION: Exam: CT Abdomen And Pelvis With Contrast Exam date and time: 09/25/2023 2:52 AM Age: 18 years old Clinical indication: Abdominal pain; Patient HX: Right flank pain that shoots down towards right side pelvic region. ; Additional info: Abd pain TECHNIQUE: Imaging protocol: Computed tomography of the abdomen and pelvis with contrast. Radiation optimization: All CT scans at this facility use at least one of these dose optimization techniques: automated exposure control; mA and/or kV adjustment per patient size (includes targeted exams where dose is matched to clinical indication); or iterative reconstruction. Contrast material: OMNI 350; Contrast volume: 80 ml; Contrast route: INTRAVENOUS (IV); REPORTING DATA: Count of CT and Cardiac NM exams in prior 12 months: This patient has received [address] and 0 known cardiac nuclear medicine studies in the 12 months prior to the current study. COMPARISON: CT abdomen pelvis wo con [id number] 06/09/2023 2:03 PM RADIATION DOSE METRICS: Total DLP (mGy-cm): 906.42 FINDINGS: Liver: Normal. No mass. Gallbladder and bile ducts: Normal. No calcified stones. No ductal dilation. Pancreas: Normal. No ductal dilation. Spleen: Normal. No splenomegaly. Adrenal glands: Normal. No mass. Kidneys and ureters: Normal. No hydronephrosis. Negative for stones. Negative for perinephric inflammation. Negative for mass. Stomach and bowel: Unremarkable. No obstruction. No mucosal thickening. Appendix: Dilated appendix measures 10 mm. Mild periappendiceal stranding. Intraperitoneal space: Unremarkable. No free air. No significant fluid collection. Vasculature: Unremarkable. No abdominal aortic aneurysm. Lymph nodes: Unremarkable. No enlarged lymph nodes. Urinary bladder: Unremarkable as visualized. Reproductive: Unremarkable as visualized. Bones/joints: Unremarkable. No acute fracture. Soft tissues: Unremarkable. CT/CT abdomen pelvis w con* [id number] IMPRESSION: Acute appendicitis.
[2023-09-25 02:20] LABS: Basophils % 0.2 %; Eosinophils # 0.1 10^3/uL (0.0-0.8); Eosinophils % 0.6 %; Hematocrit 38.7 % (36-47); Lymphocytes # 2.2 10^3/uL (1.5-6.5); Lymphocytes % 11.4 %; Mean Corpuscular HGB Conc 34.4 g/dL (30-55); Mean Corpuscular Hemoglobin 32.2 pg (27-33); Mean Corpuscular Volume 93.7 fl (85-98); Mean Platelet Volume 9.3 fL (7.4-10.4); Monocytes # 0.9 10^3/uL (0.2-0.9); Monocytes % 4.5 %; Neutrophils # 16.25 10^3/uL (1.8-8.0); Nucleated Red Blood Cells % 0 %; Platelet Count 368 10^3/cmm (157-399); Red Blood Count 4.13 10^6/uL (3.85-5.65); Red Cell Distribution Width 12.1 % (12.1-15.1); White Blood Count 19.57 10^3/uL (4.5-13.0)
[2023-09-25] MEDS: ondansetron 2 mg/ML SDV 2 mL 4 MG IVP (02:23)
[2023-09-25 02:25] LABS: HCG Qualitative Urine. Negative (Negative)
[2023-09-25 02:36] LABS: Alanine Aminotransferase 17 U/L (0-33); Albumin Level 4.4 g/dL (3.5-5.2); Alkaline Phosphatase 137 U/L (35-105); Anion Gap 13.7 (5-19); Aspartate Amino Transferase 15 U/L (0-32); Blood Urea Nitrogen 13 mg/dL (6-20); Calcium 9.3 mg/dL (8.5-10.5); Carbon Dioxide 26 mmol/L (22-29); Chloride 100 mmol/L (98-107); Globulin 3.5 g/dL (1.3-4.6); Glomerular Filtration Rate 106.7 mL/min (90-130); Glucose 105 mg/dL (65-115); Lipase 16 U/L (13-60); Osmolality Calculated 282 mOsm/kg (285-295); Potassium 3.7 mmol/L (3.5-5.1); Sodium 136 mmol/L (136-145); Total Bilirubin 0.2 mg/dL (0.15-1.2); Total Protein 7.9 g/dL (6.6-8.7)
[2023-09-25 02:46] LABS: Lactic Sepsis W/Reflex 1.2 mmol/L (0.5-2.2)
[2023-09-25 02:47] LABS: Add Urine Microscopic? YES; Bilirubin Urine Neg (Negative); Blood Urine 3+ (Negative); Glucose Urine UA Norm (Normal); Ketones Urine Negative (Negative); Leukocyte Esterase Urine Trace (Negative); Nitrate Urine Negative (Negative); Protein Urine Trace (Negative); Urine Appearance SL Hazy (CLEAR); Urine Color Yellow (Yellow); Urobilinogen Urine Neg (Negative); pH Urine 6.5 (5-7)
[2023-09-25 02:48] LABS: Add Urine Culture? No; Bacteria Urine 1+ /hpf; WBC Urine 0-4 /hpf (0-5)
[2023-09-25 02:53] LABS: Influenza A by IFA negative (Negative); Influenza B by IFA negative (Negative); Rapid Strep A Test Negative (Negative); SARS Covid-2 Antigen negative (Negative)
[2023-09-25 02:59] LABS: Procalcitonin 0.02 ng/mL (0-0.5)
[2023-09-25] MEDS: iohexol 350 mg/mL 500 mL Btl (per mL) IV (03:02)
[2023-09-25] MEDS: piperacillin-tazobactam 3.375 GM in sodium chloride 0.9% (plus) 50 ML IV ×3 (04:47→20:06)
--- NOTE | 2023-09-25 04:58 | PC.NURSE ---
Report called to Nela COTTER on [place]. All questions and concerns addressed at time of report.
--- NOTE | 2023-09-25 08:00 | P.ANESASSM_ITS ---
Pre-Anesthetic Assessment Height/Weight: Height 1.6 m Weight 89.358 kg Temp Pulse Resp BP Pulse Ox O2 Del Method 97.3 F L 73 16 121/67 100 Room Air 09/25/23 07:54 09/25/23 07:54 09/25/23 07:54 09/25/23 07:54 09/25/23 07:54 09/25/23 07:54 Operation Date: 09/25/23 13:25 Proposed Procedures p Laparoscopic Appendectomy(Not Applicable) - Dewayne Masters DO Familial anesthetic complications: None Was Beta Ozzie taken within 24 hours: N/A Was Clonidine taken within 24 hours: N/A Last intake: > 8h hrs Social No alcohol and No tobacco Exam alert, oriented x 3, clear to auscultation bilaterally and regular rate & rhythm Airway Mallampati: Class I Dentition: full Anesthetic Plan ASA status: 1 Anesthesia: General Risk of > 500 ml blood loss (7ml/kg in children): No Medications/Allergies Allergies Allergy/AdvReac Type Severity Reaction Status Date / Time fentanyl Allergy Unknown HEADACHE, Verified 09/25/23 02:15 VOMITING, STOMACH PAIN morphine Allergy ADR-Headach Verified 09/25/23 07:45 e Current Medications Generic Name Dose Route Start Last Admin Trade Name Freq PRN Reason Stop Dose Admin Lactated Ringer's 1,000 mls @ 100 mls/hr 09/25/23 04:45 09/25/23 05:25 Lactated Ringers IV Not Given .Q10H KYLER PFSH Anesthesia Medical History (Updated 09/25/23 @ 04:30 by Kwaku Ayala MD) Acute abdominal pain Family History Grandmother Cancer Breast Cancer Social History Smoking and tobacco/nicotine status: never used tobacco/nicotine Second hand smoke exposure: No Alcohol intake: never Substance/Drug Use: never Adopted: No Caregiver/support person: No Lives independently: Yes Household members: friend(s) Housing: Manufactured/Mobile home Marital status: Single Number of children: 1 Highest education level completed: High School Graduate Current occupational status: employed Data Anesthesia 09/25/23 02:14 09/25/23 02:14 Short CBC 09/25/23 Range/Units 02:14 WBC 19.57 H (4.5-13.0) 10^3/uL Hgb 13.30 (12.4-14.8) g/dL Hct 38.7 (36-47) % MCV 93.7 (85-98) fl Plt Count 368 (157-399) 10^3/cmm Neut % (Auto) 83.0 % Neut # (Auto) 16.25 H (1.8-8.0) 10^3/uL BMP 09/25/23 02:14 Sodium 136 Potassium 3.7 Chloride 100 Carbon Dioxide 26 BUN 13 Creatinine 0.7 Glucose 105 Calcium 9.3 Liver Function 09/25/23 Range/Units 02:14 Total Bilirubin 0.2 (0.15-1.2) mg/dL AST 15 (0-32) U/L ALT 17 (0-33) U/L Alkaline Phosphatase 137 H (35-105) U/L Albumin 4.4 (3.5-5.2) g/dL Urine 09/25/23 Range/Units 02:18 Urine Color Yellow (Yellow) Urine Appearance Sl hazy A (CLEAR) Urine pH 6.5 (5-7) Ur Specific [place] 1.020 (1.005-1.030) Urine Protein Trace (Negative) Urine Glucose (UA) Norm (Normal) Urine Ketones Negative (Negative) Urine Nitrate Negative (Negative) Urine Bilirubin Neg (Negative) Ur Leukocyte Esterase Trace H (Negative) Urine RBC 5-10 H (0-2) /hpf Urine WBC 0-4 H (0-5) /hpf COVID Results 09/25/23 02:27 SARS-CoV-2 Ag (Rapid) negative Cardiac Studies: 2 No Data to Display
[2023-09-25] MEDS: sodium chloride 0.9% 1,000 ML 30 ML IV (08:18)
--- NOTE | 2023-09-25 08:30 | P.HP_ITS ---
Providers/Chief Complaint 2 Admitting Physician: Dewayne Masters DO Primary Care Provider: Ted Mauro MD Chief Complaint: abd, n/v History of Present Illness Shayne Choudhury is a 18 year old female who presented to the hospital with 1 day history of lower abdominal pain. She reports she had an episode similar to this back in May and has had off-and-on lower abdominal pain since. Her pain is sharp and constant. The pain is across the lower abdomen but mostly in the right lower quadrant. The pain does not radiate. Palpation makes pain worse. Nothing is pain better. She does endorse nausea and vomiting but denies any overt hematemesis. She does report diarrhea but denies any hematochezia and/or melena. She reports chills at home but denies any fever. CT abdomen pelvis shows acute appendicitis Review of Systems 2 General: Reports: 10 or more systems reviewed and unremarkable except in HPI and below Medications/Allergies Allergies Allergy/AdvReac Type Severity Reaction Status Date / Time fentanyl Allergy Unknown HEADACHE, Verified 09/25/23 02:15 VOMITING, STOMACH PAIN morphine Allergy ADR-Headach Verified 09/25/23 07:45 e PFSH Acute 2 PFSH: Medical History Acute abdominal pain Family History Grandmother Cancer Breast Cancer Social History Smoking and tobacco/nicotine status: never used tobacco/nicotine Second hand smoke exposure: No Alcohol intake: never Substance/Drug Use: never Adopted: No Caregiver/support person: No Lives independently: Yes Household members: friend(s) Housing: Manufactured/Mobile home Marital status: Single Number of children: 1 Highest education level completed: High School Graduate Current occupational status: employed Vitals/I&O/Wt Last Vital Signs Temp 97.3 F L 09/25/23 07:54 Pulse 73 09/25/23 07:54 Resp 16 09/25/23 07:54 BP 121/67 09/25/23 07:54 Pulse Ox 100 09/25/23 07:54 O2 Del Method Room Air 09/25/23 07:54 09/24/23 09/25/23 09/25/23 22:59 06:59 14:59 Intake Total 50 / 50 Balance 50 / 50 Weight last 48 hrs Weight 197 lb Weight 197 lb Weight 185 lb Physical Exam 2 Narrative: General : Patient is well developed , no acute distress, oriented x3 Head : Normal cephalic, a-traumatic. Ears : Pinnae and external canal are normal. Hearing is normal. Eyes : PERRLA, Sclera and injection are normal. No conjunctival discharge. Nose : Mucous membranes are without erythema. Throat : buccal mucosa is normal, gums are without significant recession or hypertrophy. Lungs : Equal chest rise bilaterally, no use of accessory muscles, trachea is midline. Cor : Rate and rhythm are normal. Abdomen : Soft, ND, tender to palpation right lower quadrant, negative Rovsing's, no g/r/m Extremities : No edema, no cyanosis or clubbing, dorsalis pedis pulses are present bilaterally, non-tender to palpation of calves. Upper extremities are normal bilaterally. Back : non-tender to palpation, no CVA tenderness. Neuro : CN II - XII intact, Upper and lower extremities have equal and full strength Data 09/25/23 02:14 09/25/23 02:14 A&P Assessment and plan (1) Acute appendicitis: Qualifiers: Acute appendicitis type: with localized peritonitis Appendicitis abscess presence: without abscess Appendicitis gangrene presence: without gangrene Appendicitis perforation presence: without perforation Qualified Code(s): K35.30 - Acute appendicitis with localized peritonitis, without perforation or gangrene Plan Laparoscopic Appendectomy The risks and benefits of the procedure, including but not limited to, bleeding, infection, scar, numbness, pain, damage to surrounding structures, conversion to an open procedure, were explained to the patient. He is understanding of the risks and wishes to proceed. Attestations 2 Medical Necessity Statement*: Patient require at least 1 night in the hospital for IV antibiotics after laparoscopic appendectomy Coding Level of Care Code 61475 Diagnoses Acute appendicitis K35.30 Acute appendicitis type: with localized peritonitis Appendicitis abscess presence: without abscess Appendicitis gangrene presence: without gangrene Appendicitis perforation presence: without perforation
[2023-09-25] MEDS: lidocaine-epi 2% 20 mL INJ INJECTION (09:29)
--- NOTE | 2023-09-25 09:45 | P.OP_ITS ---
Operative Report Date of procedure: September 25, 2023 Pre-op diagnosis: Acute appendicitis Post-op diagnosis: same Procedure done: Laparoscopic appendectomy Implants: None Specimens removed/disposition: Appendix Surgeon: Dewayne Masters DO Anesthesia: General and Local Estimated blood loss (mL): 5 Complications: None apparent Brief History: This very pleasant 18-year-old female presented to the hospital with abdominal pain. She was diagnosed with acute appendicitis. Laparoscopic appendectomy was indicated. The risk benefits explained and documented. Procedure: Patient was wheeled into the operative room and placed on the OR table in a supine position. Abdomen was inspected prepped and draped in usual sterile fashion. Time-out was performed and all present were in agreement. A 15 blade scalp was used to make a stab incision in the left upper quadrant and intra- abdominal insufflation was achieved using a Veress needle. After localizing the tissue incisions were made and a 12 millimeter trocar was placed into the umbilicus as well as a 5mm in the right lower quadrant and a 5 mm in the left lower quadrant . The appendix was identified and was mildly inflamed. I used the Voyant to ligate the mesoappendix at the base. I then used 2 PDS endo-loops to snare the base of the appendix. I then used the Voyant to ligate the appendix distally. The appendix was removed from the abdomen using an Endo- Catch bag through the umbilical incision. I examined the abdomen and no further pathology was identified. Hemostasis was noted. I then closed the umbilical site with a Diego-René and 0 Vicryl suture in a figure of 8 fashion. All ports removed. Skin was washed and dried. Incisions were closed with 4 O Vicryl in a subcuticular interrupted fashion. Skin glue was applied. Patient tolerated the procedure well.
[2023-09-25] MEDS: fentaNYL 50 mcg/mL INJ 2mL IVP (10:25)
[2023-09-25] MEDS: diphenhydrAMINE 25 mg Capsule PO (11:14)
[2023-09-25] MEDS: albuterol 2.5 mg/3 mL Neb INHALATION (11:16)
--- NOTE | 2023-09-25 11:46 | PC.NURSE ---
Pt reports difficulty breathing upon returning to floor from PACU. Inspiratory and expiratory wheezing noted in bilateral upper lobes. Oxygen saturation at 98%. Notified Dr. Masters and 25mg of Benadryl ordered along with breathing tx. Wheezing subsides after administration of these.
[2023-09-25] MEDS: HYDROcodone-acetaminophen 7.5-325 mg Tablet 1 TAB PO ×3 (13:48→22:32)
[2023-09-25] MEDS: lactated ringers 1,000 ML 100 ML IV (18:04)
[2023-09-26] MEDS: piperacillin-tazobactam 3.375 GM in sodium chloride 0.9% (plus) 50 ML IV (03:19)
[2023-09-26] MEDS: HYDROcodone-acetaminophen 7.5-325 mg Tablet 1 TAB PO ×2 (03:20→07:57)
[2023-09-26 04:10] VITALS: BP 100/62; PULSE 71; RESP 15; TEMP 36.8; O2SAT 95
[2023-09-26 05:18] LABS: Basophils % 0.1 %; Hematocrit 34.7 % (36-47); Lymphocytes # 1.6 10^3/uL (1.5-6.5); Mean Corpuscular HGB Conc 32.6 g/dL (30-55); Mean Corpuscular Hemoglobin 31.7 pg (27-33); Mean Corpuscular Volume 97.2 fl (85-98); Mean Platelet Volume 9.8 fL (7.4-10.4); Monocytes # 0.5 10^3/uL (0.2-0.9); Monocytes % 4.1 %; Neutrophils # 9.81 10^3/uL (1.8-8.0); Neutrophils % 82.5 %; Nucleated Red Blood Cells % 0 %; Platelet Count 316 10^3/cmm (157-399); Red Blood Count 3.57 10^6/uL (3.85-5.65); Red Cell Distribution Width 12.3 % (12.1-15.1); White Blood Count 11.89 10^3/uL (4.5-13.0)
[2023-09-26 05:40] LABS: Anion Gap 12.9 (5-19); Blood Urea Nitrogen 9 mg/dL (6-20); Calcium 8.6 mg/dL (8.5-10.5); Carbon Dioxide 23 mmol/L (22-29); Chloride 105 mmol/L (98-107); Glomerular Filtration Rate 157.3 mL/min (90-130); Glucose 123 mg/dL (65-115); Osmolality Calculated 284 mOsm/kg (285-295); Potassium 3.9 mmol/L (3.5-5.1); Sodium 137 mmol/L (136-145)
[2023-09-26 06:00] VITALS: BMI 34.7
[2023-09-26 08:04] VITALS: BP 112/75; PULSE 80; RESP 18; TEMP 36.7; O2SAT 98
--- NOTE | 2023-09-26 09:04 | PC.CHAP ---
Pastoral Care Encounter/Spiritual Assessment Type of Contact [] Declined repairer general visit [] Patient/Family/Request visit [] Outpatient visit [] Follow-up visit [] Physician referral [] Code/Alert [x] Routine visit [] Staff referral [] Actively dying [] Patient sleeping [x] Family support [] [] Out of room [] Palliative care [] [] Receiving care in room [] Pre-surgical visit [] Trauma [] Long length of stay [] ICU visit [] Other: Relational/Emotional Strength [x] Patient feels connected with others/family/visitors/staff [] Distress [] Loneliness/isolation [] Abandonment Spirituality of Patient [x] Person of Klaudia [] Attends Congregation of their Klaudia [x] Believes in Prayer [] Reads Bible or Muslim materials [] There are Spiritual issues to be addressed Food Sanitarian Interventions [x] Prayer [x] Active listening [] Non-anxious presence [x] Spiritual/emotional support [] Crisis/trauma care [] Spiritual counseling [] Bereavement support [] Provided bereavement packet [] Provided Bible/devotional materials [] Provided toy/stuffed animal, coloring book to patient or family member [] Provided Communion [] Anointing/[place] [] Salvation [x] Completed spiritual assessment [] Other: Impact on Illness or Injury [] Angry [] Fearful [] Anxious [] Often cries [] Exhaustion [] Unable to work [] Unable to attend anabaptism [] Unable to walk/stand [] Unable to read [] Unable to drive [] Unable to eat/drink [] Unable to sleep [] Unable to be with family [] Patient intubated [] Other: Summary Time spent with patient 5 min
[2023-09-26 10:49] VITALS: BP 112/75; PULSE 80; RESP 18; TEMP 36.7; O2SAT 98
--- NOTE | 2023-09-26 11:53 | P.DS_ITS ---
Discharge Providers Date of Admission: 09/25/23 04:54 Date of Discharge: September 26, 2023 Attending Provider at Admission: Dewayne Masters DO Attending Provider at Discharge: Jayjay Davis MD Primary Care Provider: Ted Mauro MD Diagnoses at Discharge Discharge Diagnosis (1) Acute appendicitis: Details from hospital stay: 18-year-old female who presented with acute appendicitis verified by imaging. Laparoscopic appendectomy was done by my colleague Dr. Masters, I have been asked to follow-up on the postoperative. As he will be out of town. Patient doing well on postoperative day 1 tolerating diet, abdominal pain is controlled, surgical incisions look well. Status: Acute Qualifiers: Acute appendicitis type: with localized peritonitis Appendicitis abscess presence: without abscess Appendicitis gangrene presence: without gangrene Appendicitis perforation presence: without perforation Qualified Code(s): K35.30 - Acute appendicitis with localized peritonitis, without perforation or gangrene Reason for Visit Reason for Visit: abd, n/v Physical Exam GI: OTHER: Abdomen soft appropriately tender to palpation, surgical incisions healing well. Discharge Data Studies Completed and Pending Completed Studies During Hospitalization Category Date Time Status CT abdomen pelvis w con* [id number] Stat Cat Scan 09/25/23 02:13 Completed Pending at discharge Category Date Time Status Streptococcus Culture Group A Stat Lab 09/25/23 02:27 Received Pathology: Surgical [PTH] Routine Pth 09/25/23 09:32 Received Radiology Impressions Abdomen/Pelvis CT 09/25/23 02:13 IMPRESSION: Acute appendicitis. ADDENDUM: 09/25/23 0427 THIS REPORT CONTAINS FINDINGS THAT MAY BE CRITICAL TO PATIENT CARE. The findings were verbally communicated via telephone conference with CODY MORRIS at 4:26 AM CABLE SPLICER APPRENTICE on 09/25/2023. The findings were acknowledged and understood. Laboratory Results WBC 11.89 10^3/uL (4.5-13.0) 09/26/23 04:35 RBC 3.57 10^6/uL (3.85-5.65) L 09/26/23 04:35 Hgb 11.30 g/dL (12.4-14.8) L 09/26/23 04:35 Hct 34.7 % (36-47) L 09/26/23 04:35 MCV 97.2 fl (85-98) 09/26/23 04:35 MCH 31.7 pg (27-33) 09/26/23 04:35 MCHC 32.6 g/dL (30-55) D 09/26/23 04:35 RDW 12.3 % (12.1-15.1) 09/26/23 04:35 Plt Count 316 10^3/cmm (157-399) 09/26/23 04:35 MPV 9.8 fL (7.4-10.4) 09/26/23 04:35 Neut % (Auto) 82.5 % 09/26/23 04:35 Lymph % (Auto) 13.0 % 09/26/23 04:35 Dunn % (Auto) 4.1 % 09/26/23 04:35 Eos % (Auto) 0.0 % 09/26/23 04:35 Baso % (Auto) 0.1 % 09/26/23 04:35 Neut # (Auto) 9.81 10^3/uL (1.8-8.0) H 09/26/23 04:35 Lymph # (Auto) 1.6 10^3/uL (1.5-6.5) 09/26/23 04:35 Dunn # (Auto) 0.5 10^3/uL (0.2-0.9) 09/26/23 04:35 Eos # (Auto) 0.0 10^3/uL (0.0-0.8) 09/26/23 04:35 Baso # (Auto) 0.0 10^3/uL (0.0-0.1) 09/26/23 04:35 Nucleated RBC % (auto) 0 % 09/26/23 04:35 Nucleated RBCs # 0.0 /100WBC 09/26/23 04:35 Sodium 137 mmol/L (136-145) 09/26/23 04:35 Potassium 3.9 mmol/L (3.5-5.1) 09/26/23 04:35 Chloride 105 mmol/L (98-107) 09/26/23 04:35 Carbon Dioxide 23 mmol/L (22-29) 09/26/23 04:35 Anion Gap 12.9 (5-19) 09/26/23 04:35 BUN 9 mg/dL (6-20) 09/26/23 04:35 Creatinine 0.5 mg/dL (0.5-0.9) 09/26/23 04:35 GFR Calculation 157.3 mL/min (90-130) H 09/26/23 04:35 Glucose 123 mg/dL (65-115) H 09/26/23 04:35 Calculated Osmolality 284 mOsm/kg (285-295) L 09/26/23 04:35 Lactic Acid 1.2 mmol/L (0.5-2.2) 09/25/23 02:14 Calcium 8.6 mg/dL (8.5-10.5) 09/26/23 04:35 Total Bilirubin 0.2 mg/dL (0.15-1.2) 09/25/23 02:14 AST 15 U/L (0-32) 09/25/23 02:14 ALT 17 U/L (0-33) 09/25/23 02:14 Alkaline Phosphatase 137 U/L (35-105) H 09/25/23 02:14 Total Protein 7.9 g/dL (6.6-8.7) 09/25/23 02:14 Albumin 4.4 g/dL (3.5-5.2) 09/25/23 02:14 Globulin 3.5 g/dL (1.3-4.6) 09/25/23 02:14 Lipase 16 U/L (13-60) 09/25/23 02:14 Procalcitonin 0.02 ng/mL (0-0.5) 09/25/23 02:14 HCG, Qual Negative (Negative) 09/25/23 02:18 Urine Color Yellow (Yellow) 09/25/23 02:18 Urine Appearance Sl hazy (CLEAR) A 09/25/23 02:18 Urine pH 6.5 (5-7) 09/25/23 02:18 Ur Specific [place] 1.020 (1.005-1.030) 09/25/23 02:18 Urine Protein Trace (Negative) 09/25/23 02:18 Urine Glucose (UA) Norm (Normal) 09/25/23 02:18 Urine Ketones Negative (Negative) 09/25/23 02:18 Urine Blood 3+ (Negative) H 09/25/23 02:18 Urine Nitrate Negative (Negative) 09/25/23 02:18 Urine Bilirubin Neg (Negative) 09/25/23 02:18 Urine Urobilinogen Neg mg/dL (Negative) 09/25/23 02:18 Ur Leukocyte Esterase Trace (Negative) H 09/25/23 02:18 Urine RBC 5-10 /hpf (0-2) H 09/25/23 02:18 Urine WBC 0-4 /hpf (0-5) H 09/25/23 02:18 Ur Squamous Epith Cells 10-15 /hpf (0-5) H 09/25/23 02:18 Amorphous Sediment Not Reportable 09/25/23 02:18 Urine Bacteria 1+ /hpf (NONE) H 09/25/23 02:18 Influenza Type A Ag negative (Negative) 09/25/23 02:27 Influenza Type B Ag negative (Negative) 09/25/23 02:27 SARS-CoV-2 Ag (Rapid) negative (Negative) 09/25/23 02:27 Group A Strep Rapid Negative (Negative) 09/25/23 02:27 Vitals Last Vital Signs Temp 98.1 F 09/26/23 10:49 Pulse 80 09/26/23 10:49 Resp 18 09/26/23 10:49 BP 112/75 09/26/23 10:49 Pulse Ox 98 09/26/23 10:49 O2 Del Method Room Air 09/26/23 08:04 O2 Flow Rate 6 09/25/23 10:05 Discharge Plan Discharge Patient Disposition: Home Condition: Stable Prescriptions: New amoxicillin-pot clavulanate 875-125 mg tablet 1 tab PO Q12H Qty: 14 0RF meloxicam 15 mg tablet 15 mg PO DAILY Qty: 7 0RF Continued acetaminophen 500 mg Tablet 1,000 mg PO Q6H PRN (Reason: Pain) Xulane 150-35 mcg/24 hr patch weekly See Rx Instructions .ROUTE .COMPLEX Rx Instructions: Apply one PATCH EVERY WEEK transdermally directed FOR 90 DAYS. Discontinued nitrofurantoin monohyd/m-cryst 100 mg capsule 100 mg PO Q12H Rx Instructions: for 7 days (rx filled 09/15/23) Discharge Orders: Discharge Order (Routine); Ordered 09/26/23 Ordered By: Jayjay Davis Referrals: Jayjay Davis MD [Physician] - (2 weeks We have notified your physician's clinic of the need for a follow-up appointment to be scheduled. If you have not heard from them within the next 2 business days, please call them directly. ) Benoit Mckeon MD [Physician] - 10/03/23 10:45 am Discharge Diet: Advance as tolerated Discharge Activity: Resume usual activity Patient Instructions: Amoxicillin/Clavulanate Potassium (By mouth), Meloxicam (By mouth), Appendicitis (GEN), Laparoscopic Appendectomy (GEN), Opioid Safety, Post Anesthesia Care, Pain Management Discharge Attestations Time Spent in Discharge Care*: less than 30 min Quality Metrics Clinical Quality Measures [ No reported AMI, CVA or VTE this stay] Coding Level of Care Code Acute Code for Chg Fwd Diagnoses Acute appendicitis K35.30 Acute appendicitis type: with localized peritonitis Appendicitis abscess presence: without abscess Appendicitis gangrene presence: without gangrene Appendicitis perforation presence: without perforation
== END 2023-09-26 10:50 | disposition home or self-care (01) ==
LOC: ER 04:30 → MEDSURG 04:54
PROVIDERS: Admitting Provider Surgery; Emergency Provider Internal Medicine; PCP Family Medicine; Visit Provider Surgery
PROC: 0DTJ4ZZ Resection of Appendix, Percutaneous Endoscopic Approach (ICD-10-PCS; CPT 44970; principal; 2023-09-25 13:15)
DX: K35.80 Unspecified acute appendicitis (principal)
CPT/HCPCS: 44970; 36415; 74177; 80048; 80053; 81001; 81025; 83605; 83690; 84145; 85025; 87081; 87426; 87804; 87880; 88304; 94640; 96365; 96375; 99285; G0378; J0330; J1100; J1200; J1885; J2250; J2405; J2543; J2704; J3010; J3490; J7030; J7120; J7613; Q9967

== ENCOUNTER 2023-12-04 15:44 | Emergency (ER) | payer BC, MEDICAID, SELFPAY ==
[2023-12-04 16:00] VITALS: BP 115/77; PULSE 98; RESP 16; TEMP 36.8; O2SAT 99; BMI 34.5
--- NOTE | 2023-12-04 16:51 | W.ED.HA ---
HPI - Headache General: Chief Complaint: Headache Stated Complaint: abd pain Time Seen by Provider: 12/04/23 16:49 History of Present Illness: 18-year-old female comes in today with complaints of headache and abdominal pain. Patient reports symptoms started this afternoon. Patient's children have also been ill with similar symptoms. Patient appears nontoxic. Patient appears in mild to no pain. Review of Systems General: Reports: 10 or more systems reviewed and unremarkable except in HPI and below PFSH ED PFSH: Medical History (Updated 12/04/23 @ 17:09 by TAMAR Conway) Acute abdominal pain Surgical History (Updated 10/14/23 @ 15:33 by Dewayne Masters DO) History of laparoscopic appendectomy 09/26/23 dr. masters Family History Grandmother Cancer Breast Cancer Social History Smoking and tobacco/nicotine status: never used tobacco/nicotine Second hand smoke exposure: No Alcohol intake: never Substance/Drug Use: never Adopted: No Caregiver/support person: No Lives independently: Yes Household members: friend(s) Housing: Manufactured/Mobile home Marital status: Single Number of children: 1 Highest education level completed: High School Graduate Current occupational status: employed Female Reproductive History: Date of last menstrual period: 11/05/23 Physical Exam Const: COMMON NORMALS: alert HENMT: COMMON NORMALS: normocephalic HEAD & SCALP: normocephalic THROAT: posterior oropharynx normal Neck/C-Spine: COMMON NORMALS: full ROM Resp: COMMON NORMALS: normal respiratory effort Cardio: COMMON NORMALS: regular rate RATE: regular rate Extremity: COMMON NORMALS: normal to inspection Neuro: SENSORIUM/ORIENTATION: Yes alert Skin: COMMON NORMALS: turgor normal GENERAL SKIN EXAM: turgor normal Course Vital Signs: Vital signs: Vital Signs Temperature 98.2 F 12/04/23 16:00 Pulse Rate 98 12/04/23 16:00 Respiratory Rate 16 12/04/23 16:00 Blood Pressure 115/77 12/04/23 16:00 Pulse Oximetry 99 12/04/23 16:00 Oxygen Delivery Me thod Room Air 12/04/23 16:00 MDM - Headache Medical Decision Making 18-year-old female comes in today with illness starting today. On exam respirations are even lungs are clear to auscultation. Abdomen soft nontender. Vital signs are normal. Differential diagnosis includes viral syndrome, gastroenteritis, urinary tract infection. No signs of severe illness is noted. Children are ill with similar symptoms. Recommend viral syndrome treatment with supportive care. Mother reports understanding agreed to plan. No radiology studies performed this visit Discharge Plan Discharge Patient Disposition: Home Clinical Impression: Viral syndrome Condition: Stable Prescriptions: No Action acetaminophen 500 mg Tablet 1,000 mg PO Q6H PRN (Reason: Pain) Xulane 150-35 mcg/24 hr patch weekly See Rx Instructions .ROUTE .COMPLEX Rx Instructions: Apply one PATCH EVERY WEEK transdermally directed FOR 90 DAYS. Discharge Orders: Discharge ED (Routine); Ordered 12/04/23 Ordered By: Freddy Demarco Referrals: Benoit Mckeon MD [Primary Care Provider] - Discharge Diet: Usual diet Discharge Activity: Increase activity as tolerated Patient Instructions: Viral Syndrome (ED) Activity Restrictions/Additional Instructions: Encourage plenty of fluids. Soft diet. Avoid really spicy or greasy foods. Use acetaminophen or ibuprofen for aches and pains. Follow-up with primary care as needed. Return to ED for worsening symptoms such as severe chest pain, severe shortness of breath, blood in vomit or stool. Coding Level of Care Code ED Education And Outreach Coordinator for Deyanira Sumner
== END 2023-12-04 17:20 | disposition home or self-care (01) ==
PROVIDERS: Emergency Provider Nurse Practitioner Family; PCP Family Medicine
DX: B34.9 Viral infection, unspecified (principal)
CPT/HCPCS: 99282

== ENCOUNTER 2024-03-01 10:15 | Emergency (ER) | payer BC, MEDICAID, SELFPAY ==
[2024-03-01 10:25] VITALS: BP 112/66; PULSE 86; RESP 16; TEMP 36.7; O2SAT 98
[2024-03-01 10:55] LABS: Basophils % 0.6 %; Eosinophils # 0.2 10^3/uL (0.0-0.8); Eosinophils % 2.5 %; Hematocrit 35.4 % (36-47); Lymphocytes # 2.4 10^3/uL (1.5-6.5); Lymphocytes % 37.2 %; Mean Corpuscular HGB Conc 33.6 g/dL (30-55); Mean Corpuscular Hemoglobin 31.2 pg (27-33); Mean Corpuscular Volume 92.7 fl (85-98); Mean Platelet Volume 9.2 fL (7.4-10.4); Monocytes # 0.4 10^3/uL (0.2-0.9); Monocytes % 5.8 %; Neutrophils # 3.45 10^3/uL (1.8-8.0); Neutrophils % 53.7 %; Nucleated Red Blood Cells % 0 %; Platelet Count 350 10^3/cmm (157-399); Red Blood Count 3.82 10^6/uL (3.85-5.65); Red Cell Distribution Width 11.9 % (12.1-15.1); White Blood Count 6.42 10^3/uL (4.5-13.0)
[2024-03-01 11:19] LABS: Alanine Aminotransferase 22 U/L (0-33); Albumin Level 4.3 g/dL (3.5-5.2); Alkaline Phosphatase 118 U/L (35-105); Anion Gap 14.9 (5-19); Aspartate Amino Transferase 14 U/L (0-32); Blood Urea Nitrogen 9 mg/dL (6-20); Calcium 9.2 mg/dL (8.5-10.5); Carbon Dioxide 24 mmol/L (22-29); Chloride 104 mmol/L (98-107); Creatinine Clr Calc Pharmacy 194.9787; Globulin 3.3 g/dL (1.3-4.6); Glomerular Filtration Rate 157.3 mL/min (90-130); Glucose 83 mg/dL (65-115); Osmolality Calculated 286 mOsm/kg (285-295); Potassium 3.9 mmol/L (3.5-5.1); Sodium 139 mmol/L (136-145); Total Bilirubin 0.2 mg/dL (0.15-1.2); Total Protein 7.6 g/dL (6.6-8.7)
--- NOTE | 2024-03-01 11:45 | US_ITS ---
WS: [id number] EARLY OBSTETRICAL ULTRASOUND (<14 WEEKS). HISTORY: bleeding x3 days/cramping/back pain COMPARISON: None available. No intrauterine gestational sac is identified. There is very minimal thickening along the endometrium but there is no definite gestational sac. Endometrium measures 1.6 cm. There is a tiny cyst in the R IGHT lateral endometrium which is nonspecific with a maximal diameter of 6 mm. No free fluid in the c ul-de-sac. Both ovaries are identified and normal size. No adnexal mass. US/US OB <=14 wk fetus w transvag IMPRESSION: 1. No intrauterine gestation identified. 2. There is a very tiny cyst in the RIGHT lateral endometrium. Nonspecific. Co uld potentially represent a very early intrauterine gestation. 3. If there is a positive beta hCG ectopic is not excluded at this time.
[2024-03-01 11:53] VITALS: BP 136/79; PULSE 83; RESP 18; O2SAT 100
--- NOTE | 2024-03-01 11:53 | ED_ITS ---
Documented by User: [email or web address] East 03/01/24 13:35 HPI - Female Genitourinary 2 General: Chief complaint: Urogenital-Female Stated complaint: 5 weeks preg and bleeding Time Seen by Provider: 03/01/24 11:11 Source: patient Mode of arrival: ambulatory Limitations: no limitations History of Present Illness: Patient is a 18-year-old female who is A0 and currently 5 weeks who presents to the emergency department complaining of 3 days of vaginal bleeding associated with abdominal cramping and lower back pain. She denies any abnormalities with the last 2 pregnancies and states she herself did not have any complications with pregnancies. She denies any blood disorders or recent trauma. She does note some lightheadedness intermittently occurring over the past few days, and states just Friday was when she learned that she was by 2 positive home test. Has not established with OB at this time. States she was just concerned because she did not have bleeding with her prior 2 pregnancies. No palpitations, breathing difficulties, chest pain, or other symptoms reported at this time. She notes the bleeding is very light, comparable to spotting. She states she only notices it when she wipes and has not bled through any pads. MD elicited complaint: vaginal bleeding and back pain Onset (ago): day(s) (3) Severity: mild Quality of pain: cramping Associated symptoms: Deny headache(s) or nausea Patient : Yes Possible : at home test positive Related Data: : 3 Para: 2 Total number of abortions (spontaneous and elective): 0 Review of Systems 2 General: Reports: 10 or more systems reviewed and unremarkable except in HPI and below Const: Denies: fever(s), chills, change in appetite, change in weight or diaphoresis ENMT: Denies: throat pain or hoarseness Card: Reports: lightheadedness; Denies: chest pain or palpitations Resp: Denies: dyspnea, productive cough or wheezing GI: Reports: GI cramping; Denies: nausea, vomiting, diarrhea, constipation, bloating, change in stool character or hematochezia : Reports: vaginal bleeding; Denies: flank pain, difficulty voiding, dysuria, urinary frequency or urinary urgency Musc: Reports: back pain; Denies: neck pain Skin/Breast: Denies: rash or new lesions Neuro: Denies: headache(s) or dizziness PFSH ED 2 PFSH: Medical History Acute abdominal pain Surgical History History of laparoscopic appendectomy 09/26/23 dr. mckeon Family History Grandmother Cancer Breast Cancer Social History Smoking and tobacco/nicotine status: never used tobacco/nicotine Second hand smoke exposure: No Alcohol intake: never Substance/Drug Use: never Adopted: No Caregiver/support person: No Lives independently: Yes Household members: friend(s) Housing: Manufactured/Mobile home Marital status: Single Number of children: 1 Highest education level completed: High School Graduate Current occupational status: employed Female Reproductive History: : 3 Physical Exam 2 Const: COMMON NORMALS: no acute distress, average body habitus, patient oriented x3, no limitations, healthy appearing, alert and well nourished G ENERAL APPEARANCE: cooperative and comfortable ORIENTATION/CONSCIOUSNESS: Yes awake HENMT: COMMON NORMALS: normocephalic, atraumatic, hearing grossly normal bilaterally, external ears normal, Normal external nose present, Normal nasal mucous membranes and turbinates present and moist oral mucous membranes HEAD & SCALP: normocephalic and atraumatic NOSE: Normal external nose present and Normal nasal mucous membranes and turbinates present EXTERNAL EAR: Yes external ears normal Eye: COMMON NORMALS: Equal, round and reactive pupils present, EOMs intact bilaterally, conjunctivae normal and normal visual wilson by confrontation C ONJUNCTIVA: Yes conjunctivae normal PUPIL: Yes Equal, round and reactive pupils present Neck/C-Spine: COMMON NORMALS: full ROM, supple, no meningeal signs and no JVD Resp: COMMON NORMALS: normal respiratory effort, No retractions, No use of accessory muscles and clear to auscultation bilaterally AUSCULTATION: clear to auscultation bilaterally, no crackles, no rales, no rhonchi and no wheezes Cardio: COMMON NORMALS: no JVD, regular rate, regular rhythm, S1 normal heart sound present, S2 normal heart sound present, No gallops present (Cardio), No clicks present (Cardio), No murmurs present (Cardio), No rub (Cardio) and Peripheral pulses 2+ throughout RATE: regular rate RHYTHM: regular rhythm HEART SOUNDS: S1 normal heart sound present and S2 normal heart sound present PERIPHERAL PULSES: Peripheral pulses 2+ throughout GI: COMMON NORMALS: Normal to inspection, nondistended, normoactive bowel sounds present, Soft to palpation, non-tender, No hepatosplenomegaly present and no masses AUSCULTATION: Yes normoactive bowel sounds PALPATION: Yes Soft to palpation, No Guarding due to palpation present (GI), No Rigid due to palpation and Yes No hepatosplenomegaly present RECTAL EXAM: deferred : COMMON NORMALS: Yes no CVA tenderness BLADDER/KIDNEY EXAM: Yes no CVA tenderness Back/Pelvis: COMMON NORMALS: no CVA tenderness Extremity: COMMON NORMALS: normal to inspection and full ROM Neuro: COMMON NORMALS: patient oriented x3, moves all extremities, no focal motor deficits and no sensory deficits noted SENSORIUM/ORIENTATION: Yes alert MENINGEAL SIGNS: Yes no meningeal signs Psych: COMMON NORMALS: mental status grossly normal, cooperative and speech normal SPEECH: Yes normal speech Skin: COMMON NORMALS: no rashes or lesions noted GENERAL SKIN EXAM: no rashes or lesions noted Course 2 Vital Signs: Vital signs: Vital Signs Temperature 98.1 F 03/01/24 10:25 Pulse Rate 83 03/01/24 11:53 Respiratory Rate 18 03/01/24 11:53 Blood Pressure 136/79 03/01/24 11:53 Pulse Oximetry 100 03/01/24 11:53 Oxygen Delivery Me thod Room Air 03/01/24 11:53 [facility] - Female Medical Decision Making Patient presents for 3 to 4 days of vaginal bleeding associated with some low back pain and mild cramping. States she had 2 positive home tests on Friday, and soon after the symptoms began. States that the bleeding has been comparable to spotting. Had not had this issue with prior pregnancies. Lab work unremarkable. Her serum quantitative did reveal probable early . Ultrasound ultimately on diagnostic, stating no intrauterine gestation could be identified though there were findings that could represent an early . Ectopic could not completely be excluded, though patient has no risk factors and beta-hCG did not indicate a trend that would resemble ectopic. Clinically she did not have any unilateral abdominal pain, so I thoroughly explained to her why she needs to return with any increase in pain or bleeding, as well as feelings of lightheadedness and passing out. She will follow-up with OB later this week to follow her beta hCG values, and return with any of the previously mentioned symptoms. All other questions and concerns addressed at this time. Differential Diagnosis Likely calculus of kidney Lab Data 03/01/24 10:41 03/01/24 10:41 Radiology Impressions Obstetrics Ultrasound 03/01/24 11:45 IMPRESSION: 1. No intrauterine gestation identified. 2. There is a very tiny cyst in the RIGHT lateral endometrium. Nonspecific. Could potentially represent a very early intrauterine gestation. 3. If there is a positive beta hCG ectopic is not excluded at this time. Laboratory Results WBC 6.42 10^3/uL (4.5-13.0) 03/01/24 10:41 RBC 3.82 10^6/uL (3.85-5.65) L 03/01/24 10:41 Hgb 11.90 g/dL (12.4-14.8) L 03/01/24 10:41 Hct 35.4 % (36-47) L 03/01/24 10:41 MCV 92.7 fl (85-98) 03/01/24 10:41 MCH 31.2 pg (27-33) 03/01/24 10:41 MCHC 33.6 g/dL (30-55) 03/01/24 10:41 RDW 11.9 % (12.1-15.1) L 03/01/24 10:41 Plt Count 350 10^3/cmm (157-399) 03/01/24 10:41 MPV 9.2 fL (7.4-10.4) 03/01/24 10:41 Neut % (Auto) 53.7 % 03/01/24 10:41 Lymph % (Auto) 37.2 % 03/01/24 10:41 [place] % (Auto) 5.8 % 03/01/24 10:41 Eos % (Auto) 2.5 % 03/01/24 10:41 Baso % (Auto) 0.6 % 03/01/24 10:41 Neut # (Auto) 3.45 10^3/uL (1.8-8.0) 03/01/24 10:41 Lymph # (Auto) 2.4 10^3/uL (1.5-6.5) 03/01/24 10:41 [place] # (Auto) 0.4 10^3/uL (0.2-0.9) 03/01/24 10:41 Eos # (Auto) 0.2 10^3/uL (0.0-0.8) 03/01/24 10:41 Baso # (Auto) 0.0 10^3/uL (0.0-0.1) 03/01/24 10:41 Nucleated RBC % (auto) 0 % 03/01/24 10:41 Nucleated RBCs # 0.0 /100WBC 03/01/24 10:41 Sodium 139 mmol/L (136-145) 03/01/24 10:41 Potassium 3.9 mmol/L (3.5-5.1) 03/01/24 10:41 Chloride 104 mmol/L (98-107) 03/01/24 10:41 Carbon Dioxide 24 mmol/L (22-29) 03/01/24 10:41 Anion Gap 14.9 (5-19) 03/01/24 10:41 BUN 9 mg/dL (6-20) 03/01/24 10:41 Creatinine 0.5 mg/dL (0.5-0.9) 03/01/24 10:41 GFR Calculation 157.3 mL/min (90-130) H 03/01/24 10:41 Glucose 83 mg/dL (65-115) 03/01/24 10:41 Calculated Osmolality 286 mOsm/kg (285-295) 03/01/24 10:41 Calcium 9.2 mg/dL (8.5-10.5) 03/01/24 10:41 Total Bilirubin 0.2 mg/dL (0.15-1.2) 03/01/24 10:41 AST 14 U/L (0-32) 03/01/24 10:41 ALT 22 U/L (0-33) 03/01/24 10:41 Alkaline Phosphatase 118 U/L (35-105) H 03/01/24 10:41 Total Protein 7.6 g/dL (6.6-8.7) 03/01/24 10:41 Albumin 4.3 g/dL (3.5-5.2) 03/01/24 10:41 Globulin 3.3 g/dL (1.3-4.6) 03/01/24 10:41 Ser , Semi-Qnt 628.90 mIU/mL 03/01/24 10:41 Blood Type O Positive 03/01/24 10:41 Rho(D) Type Rh positive 03/01/24 10:41 All radiology interpretation(s) finalized by discharge Discharge Plan Discharge Patient Disposition: Home Clinical Impression: Vaginal bleeding during Condition: Stable Prescriptions: No Action acetaminophen 500 mg Tablet 1,000 mg PO Q6H PRN (Reason: Pain) Discharge Orders: Discharge ED (Routine); Ordered 03/01/24 Ordered By: Jayjay Garcia Referrals: Sylvester Woodson, CAHRLIE, RHODA [Primary Care Provider] - Discharge Diet: Usual diet Discharge Activity: Resume usual activity Patient Instructions: (ED) Activity Restrictions/Additional Instructions: Follow-up with SIGNALLING AND COMMUNICATIONS ENGINEER as discussed. Follow beta-hCG values and return if you develop any significant worsening of bleeding or pain. Coding Level of Care Code ED Care Transition Manager for Chg Fwd Documented by User: Mihir Roman DO 03/01/24 18:05 HPI - Female Genitourinary 2 General: Chief complaint: Urogenital-Female Stated complaint: 5 weeks preg and bleeding Time Seen by Provider: 03/01/24 11:11 [facility] ED 2 PFSH: Medical History Acute abdominal pain Surgical History History of laparoscopic appendectomy 09/26/23 dr. mckeon Family History Grandmother Cancer Breast Cancer Social History Smoking and tobacco/nicotine status: never used tobacco/nicotine Second hand smoke exposure: No Alcohol intake: never Substance/Drug Use: never Adopted: No Caregiver/support person: No Lives independently: Yes Household members: friend(s) Housing: Manufactured/Mobile home Marital status: Single Number of children: 1 Highest education level completed: High School Graduate Current occupational status: employed Course 2 Vital Signs: Vital signs: Vital Signs Temperature 98.1 F 03/01/24 10:25 Pulse Rate 83 03/01/24 11:53 Respiratory Rate 18 03/01/24 11:53 Blood Pressure 136/79 03/01/24 11:53 Pulse Oximetry 100 03/01/24 11:53 Oxygen Delivery Me thod Room Air 03/01/24 11:53 MDM - Female Medical Decision Making Patient presents for 3 to 4 days of vaginal bleeding associated with some low back pain and mild cramping. States she had 2 positive home tests on Friday, and soon after the symptoms began. States that the bleeding has been comparable to spotting. Had not had this issue with prior pregnancies. Lab work unremarkable. Her serum quantitative did reveal probable early . Ultrasound ultimately on diagnostic, stating no intrauterine gestation could be identified though there were findings that could represent an early . Ectopic could not completely be excluded, though patient has no risk factors and beta-hCG did not indicate a trend that would resemble ectopic. Clinically she did not have any unilateral abdominal pain, so I thoroughly explained to her why she needs to return with any increase in pain or bleeding, as well as feelings of lightheadedness and passing out. She will follow-up with OB later this week to follow her beta hCG values, and return with any of the previously mentioned symptoms. All other questions and concerns addressed at this time. Chart reviewed Medical Records I reviewed the patient's medical records. Lab Data I reviewed the patient's lab results. 03/01/24 10:41 03/01/24 10:41 Radiology Impressions Obstetrics Ultrasound 03/01/24 11:45 IMPRESSION: 1. No intrauterine gestation identified. 2. There is a very tiny cyst in the RIGHT lateral endometrium. Nonspecific. Could potentially represent a very early intrauterine gestation. 3. If there is a positive beta hCG ectopic is not excluded at this time. Laboratory Results WBC 6.42 10^3/uL (4.5-13.0) 03/01/24 10:41 RBC 3.82 10^6/uL (3.85-5.65) L 03/01/24 10:41 Hgb 11.90 g/dL (12.4-14.8) L 03/01/24 10:41 Hct 35.4 % (36-47) L 03/01/24 10:41 MCV 92.7 fl (85-98) 03/01/24 10:41 MCH 31.2 pg (27-33) 03/01/24 10:41 MCHC 33.6 g/dL (30-55) 03/01/24 10:41 RDW 11.9 % (12.1-15.1) L 03/01/24 10:41 Plt Count 350 10^3/cmm (157-399) 03/01/24 10:41 MPV 9.2 fL (7.4-10.4) 03/01/24 10:41 Neut % (Auto) 53.7 % 03/01/24 10:41 Lymph % (Auto) 37.2 % 03/01/24 10:41 [place] % (Auto) 5.8 % 03/01/24 10:41 Eos % (Auto) 2.5 % 03/01/24 10:41 Baso % (Auto) 0.6 % 03/01/24 10:41 Neut # (Auto) 3.45 10^3/uL (1.8-8.0) 03/01/24 10:41 Lymph # (Auto) 2.4 10^3/uL (1.5-6.5) 03/01/24 10:41 [place] # (Auto) 0.4 10^3/uL (0.2-0.9) 03/01/24 10:41 Eos # (Auto) 0.2 10^3/uL (0.0-0.8) 03/01/24 10:41 Baso # (Auto) 0.0 10^3/uL (0.0-0.1) 03/01/24 10:41 Nucleated RBC % (auto) 0 % 03/01/24 10:41 Nucleated RBCs # 0.0 /100WBC 03/01/24 10:41 Sodium 139 mmol/L (136-145) 03/01/24 10:41 Potassium 3.9 mmol/L (3.5-5.1) 03/01/24 10:41 Chloride 104 mmol/L (98-107) 03/01/24 10:41 Carbon Dioxide 24 mmol/L (22-29) 03/01/24 10:41 Anion Gap 14.9 (5-19) 03/01/24 10:41 BUN 9 mg/dL (6-20) 03/01/24 10:41 Creatinine 0.5 mg/dL (0.5-0.9) 03/01/24 10:41 GFR Calculation 157.3 mL/min (90-130) H 03/01/24 10:41 Glucose 83 mg/dL (65-115) 03/01/24 10:41 Calculated Osmolality 286 mOsm/kg (285-295) 03/01/24 10:41 Calcium 9.2 mg/dL (8.5-10.5) 03/01/24 10:41 Total Bilirubin 0.2 mg/dL (0.15-1.2) 03/01/24 10:41 AST 14 U/L (0-32) 03/01/24 10:41 ALT 22 U/L (0-33) 03/01/24 10:41 Alkaline Phosphatase 118 U/L (35-105) H 03/01/24 10:41 Total Protein 7.6 g/dL (6.6-8.7) 03/01/24 10:41 Albumin 4.3 g/dL (3.5-5.2) 03/01/24 10:41 Globulin 3.3 g/dL (1.3-4.6) 03/01/24 10:41 Ser , Semi-Qnt 628.90 mIU/mL 03/01/24 10:41 Blood Type O Positive 03/01/24 10:41 Rho(D) Type Rh positive 03/01/24 10:41 Discharge Plan Discharge Patient Disposition: Home Clinical Impression: Vaginal bleeding during Condition: Stable Prescriptions: No Action acetaminophen 500 mg Tablet 1,000 mg PO Q6H PRN (Reason: Pain) Discharge Orders: Discharge ED (Routine); Ordered 03/01/24 Ordered By: Jayjay Garcia Referrals: Sylvester Woodson, RPH, RHODA [Primary Care Provider] - Discharge Diet: Usual diet Discharge Activity: Resume usual activity Patient Instructions: (ED) Activity Restrictions/Additional Instructions: Follow-up with SIGNALLING AND COMMUNICATIONS ENGINEER as discussed. Follow beta-hCG values and return if you develop any significant worsening of bleeding or pain. Coding Level of Care Code ED Care Transition Manager for Deyanira Sumner
--- NOTE | 2024-03-01 14:18 | DCPLANNER ---
referral sent to [facility] for er f/u
--- NOTE | 2024-03-03 16:28 | DCPLANNER ---
Message sent to [facility] office
== END 2024-03-01 13:41 | disposition home or self-care (01) ==
PROVIDERS: Family Medicine; Emergency Provider Physician Assistant; PCP Pharmacist
DX: O20.9 Hemorrhage in early pregnancy, unspecified (principal); Z3A.01 Less than 8 weeks gestation of pregnancy
CPT/HCPCS: 76801; 76817; 80053; 84702; 85025; 86900; 99284

== ENCOUNTER → 2024-03-09 13:57 | Outpatient (BNVA) | payer BC, MEDICAID, SELFPAY | PROVIDERS: PCP Pharmacist; Visit Provider Obstetrics & Gynecology | DX: O26.859 Spotting complicating pregnancy, unspecified trimester (principal); Z3A.01 Less than 8 weeks gestation of pregnancy | CPT/HCPCS: 76817; 84702 ==

== ENCOUNTER → 2024-03-23 07:56 | Outpatient (BNVA) | payer BC, MEDICAID, SELFPAY | PROVIDERS: PCP Pharmacist; Visit Provider Nurse Practitioner Women's Health | DX: N92.6 Irregular menstruation, unspecified (principal) | CPT/HCPCS: 81025 ==

== ENCOUNTER → 2024-03-31 14:04 | Outpatient (BNVA) | payer BC, MEDICAID, SELFPAY | PROVIDERS: PCP Pharmacist; Visit Provider Nurse Practitioner Women's Health | DX: O26.859 Spotting complicating pregnancy, unspecified trimester (principal); Z3A.09 9 weeks gestation of pregnancy | CPT/HCPCS: 76801 ==

== ENCOUNTER → 2024-04-13 07:40 | Outpatient (BNVA) | payer BC, MEDICAID, SELFPAY | PROVIDERS: PCP Pharmacist; Visit Provider Nurse Practitioner Women's Health | DX: Z34.90 Encounter for supervision of normal pregnancy, unspecified, unspecified trimester (principal) | CPT/HCPCS: 80307; 82950; 83036; 84315; 85025; 86592; 86762; 86803; 86850; 86900; 87086; 87340; 87806 ==

== ENCOUNTER → 2024-04-29 07:54 | Outpatient (BNVA) | payer BC, MEDICAID, SELFPAY | PROVIDERS: PCP Pharmacist; Visit Provider Obstetrics & Gynecology | DX: O99.211 Obesity complicating pregnancy, first trimester; E66.01 Morbid (severe) obesity due to excess calories; Z87.59 Personal history of other complications of pregnancy, childbirth and the puerperium; Z86.59 Personal history of other mental and behavioral disorders; F41.9 Anxiety disorder, unspecified; F32.A Depression, unspecified; Z3A.00 Weeks of gestation of pregnancy not specified | CPT/HCPCS: 84315; 87491; 87591 ==

== ENCOUNTER → 2024-05-20 14:05 | Outpatient (BNVA) | payer BC, MEDICAID, SELFPAY | PROVIDERS: PCP Pharmacist; Visit Provider Nurse Practitioner Women's Health | DX: O09.899 Supervision of other high risk pregnancies, unspecified trimester (principal); Z14.1 Cystic fibrosis carrier | CPT/HCPCS: 82105; 84315 ==

== ENCOUNTER → 2024-06-16 09:14 | Outpatient (BNVA) | payer BC, MEDICAID, SELFPAY | PROVIDERS: PCP Pharmacist; Visit Provider Obstetrics & Gynecology | DX: Z36.2 Encounter for other antenatal screening follow-up (principal); Z3A.19 19 weeks gestation of pregnancy | CPT/HCPCS: 76805 ==

== ENCOUNTER → 2024-07-15 07:59 | Outpatient (BNVA) | payer BC, MEDICAID, SELFPAY | PROVIDERS: PCP Pharmacist; Visit Provider Nurse Practitioner Women's Health | DX: Z34.80 Encounter for supervision of other normal pregnancy, unspecified trimester (principal) | CPT/HCPCS: 82950; 84315 ==

== ENCOUNTER → 2024-08-12 09:54 | Outpatient (BNVA) | payer BC, MEDICAID, SELFPAY | PROVIDERS: PCP Pharmacist; Visit Provider Nurse Practitioner Women's Health | DX: Z34.90 Encounter for supervision of normal pregnancy, unspecified, unspecified trimester (principal); Z34.80 Encounter for supervision of other normal pregnancy, unspecified trimester; R35.0 Frequency of micturition | CPT/HCPCS: 84315; 85025; 87086 ==

== ENCOUNTER → 2024-09-07 10:08 | Outpatient (BNVA) | payer BC, MEDICAID, SELFPAY | PROVIDERS: PCP Pharmacist; Visit Provider Nurse Practitioner Women's Health | DX: Z34.80 Encounter for supervision of other normal pregnancy, unspecified trimester (principal) | CPT/HCPCS: 84315; 85025 ==

== ENCOUNTER → 2024-10-04 09:59 | Outpatient (BNVA) | payer BC, MEDICAID, SELFPAY | PROVIDERS: PCP Pharmacist; Visit Provider Obstetrics & Gynecology | DX: Z34.80 Encounter for supervision of other normal pregnancy, unspecified trimester (principal); Z3A.00 Weeks of gestation of pregnancy not specified | CPT/HCPCS: 84315; 87081 ==

== ENCOUNTER → 2024-10-14 08:02 | Outpatient (BNVA) | payer BC, MEDICAID, SELFPAY | PROVIDERS: PCP Pharmacist; Visit Provider Nurse Practitioner Women's Health | DX: Z34.80 Encounter for supervision of other normal pregnancy, unspecified trimester (principal) | CPT/HCPCS: 84315 ==

== ENCOUNTER 2024-10-19 21:56 | Outpatient (CLI) | payer BC, MEDICAID, SELFPAY ==
[2024-10-19 22:16] VITALS: BP 135/92; PULSE 96
[2024-10-19 22:20] VITALS: BMI 39.4
[2024-10-19 22:30] VITALS: BP 137/67; PULSE 84
[2024-10-19 22:45] VITALS: BP 128/70; PULSE 86
[2024-10-19 23:15] VITALS: BP 130/70; PULSE 96
[2024-10-19 23:30] VITALS: BP 130/73; PULSE 79
[2024-10-20 00:03] VITALS: BP 118/64; PULSE 84
[2024-10-20 00:15] VITALS: BP 133/62; PULSE 78
[2024-10-20 00:31] VITALS: BP 124/75; PULSE 87
[2024-10-20 01:00] VITALS: BP 124/82; PULSE 78
[2024-10-20 01:15] VITALS: BP 121/62; PULSE 80
[2024-10-20 01:30] VITALS: BP 115/67; PULSE 70; RESP 15; TEMP 36.7; O2SAT 99
== END 2024-10-20 01:48 | disposition home or self-care (01) ==
LOC: OPOB 22:02 → OBGYN 22:02
PROVIDERS: PCP Pharmacist; Visit Provider Obstetrics & Gynecology
DX: O26.899 Other specified pregnancy related conditions, unspecified trimester (principal); Z3A.00 Weeks of gestation of pregnancy not specified; R10.9 Unspecified abdominal pain; M54.9 Dorsalgia, unspecified; R10.2 Pelvic and perineal pain
CPT/HCPCS: 99211

== ENCOUNTER → 2024-10-21 09:10 | Outpatient (BNVA) | payer BC, MEDICAID, SELFPAY | PROVIDERS: PCP Pharmacist; Visit Provider Obstetrics & Gynecology | DX: Z34.80 Encounter for supervision of other normal pregnancy, unspecified trimester (principal) | CPT/HCPCS: 84315 ==

== ENCOUNTER → 2024-10-28 10:58 | Outpatient (BNVA) | payer BC, MEDICAID, SELFPAY | PROVIDERS: PCP Pharmacist; Visit Provider Obstetrics & Gynecology | DX: O99.013 Anemia complicating pregnancy, third trimester (principal); Z3A.00 Weeks of gestation of pregnancy not specified | CPT/HCPCS: 84315 ==

== ENCOUNTER 2024-10-30 13:46 | Inpatient (IN) | payer BC, MEDICAID, SELFPAY ==
[2024-10-30] VITALS (37 sets, daily range): BP systolic 124–167; BP diastolic 58–94; PULSE 55–105; RESP 18; TEMP 35.7–36.7; O2SAT 94–98; BMI 40.8
[2024-10-30 12:08] LABS: Basophils % 0.2 %; Eosinophils % 0.4 %; Hematocrit 29.7 % (36-47); Lymphocytes % 23.9 %; Mean Corpuscular HGB Conc 31.3 g/dL (30-55); Mean Corpuscular Hemoglobin 27.8 pg (27-33); Mean Corpuscular Volume 88.7 fl (85-98); Mean Platelet Volume 10.2 fL (7.4-10.4); Monocytes # 0.4 10^3/uL (0.2-0.9); Neutrophils # 5.88 10^3/uL (1.8-7.7); Nucleated Red Blood Cells % 0 %; Platelet Count 259 10^3/cmm (157-399); Red Blood Count 3.35 10^6/uL (3.85-5.65); Red Cell Distribution Width 13.9 % (12.1-15.1)
[2024-10-30] MEDS: dextrose 5%-lactated ringers 1,000 ML 125 ML IV (12:15)
[2024-10-30] MEDS: oxytocin 30 UNIT/500 ML BAG IV (12:15)
--- NOTE | 2024-10-30 14:20 | P.PN_ITS ---
ZOOLOGY PROFESSOR Subjective 2 Subjective: Interval history: Fetus reassuring Feeling strong UCs Cervix: 4 cm / 75% / -3 Labor: Station: -1 Amniotic Membrane Status: Ruptured Monitor Mode: Palpation Contraction Pattern: Regular Status: Category I Vitals/I&O/Wt Last Vital Signs Temp 98.0 F 10/30/24 21:50 Pulse 78 10/30/24 21:50 Resp 18 10/30/24 21:50 BP 125/87 10/30/24 21:50 Pulse Ox 98 10/30/24 21:50 O2 Del Method Room Air 10/30/24 21:50 10/30/24 10/30/24 10/31/24 14:59 22:59 06:59 Intake Total 9.75 / 9.75 1334.00 / 1343.75 Balance 9.75 / 9.75 1334.00 / 1343.75 Weight last 48 hrs Weight 238 lb Data 10/30/24 12:00 A&P Assessment and plan (1) Encounter for induction of labor: Attestations 2 Medical Necessity Statement*: Patient at 39 w 6 d, admitted for induction of labor Coding Level of Care Code Acute Code for Chg Fwd Diagnoses Encounter for induction of labor Z34.90 Time Spent (min) 30
--- NOTE | 2024-10-30 14:35 | PM.OBGYHP ---
Providers/Chief Complaint Admitting Physician: Kervin Fung MD Primary SIGN BUILDER: Sylvester Millard MD Primary Care Provider: Sylvester Woodson RPH, MBA Chief Complaint: Induction of Labor HPI SIGN BUILDER History of Present Illness 19 y.o. EDC October 31, 2024 At 39 w 6 d No complications Admitted for elective induction of labor No c/o + active movements POBHx: x two Present Details : 3 Para: 2 Labs Rubella: Immune RPR: Negative GBS: Negative Medications/Allergies Home Medications Medication Instructions Recorded Confirmed Last Taken Type Saccharomyces boulardii 250 mg 250 mg PO DAILY 08/27/24 10/30/24 Unknown History capsule (Daily Probiotic (S. boulardii)) calcium 300 mg-D3 25 mcg-magnesium 1 tab PO DAILY 08/27/24 10/30/24 Unknown History 66 mg-K2 37.5 mcg-herbal tablet (Alive Calcium-Vitamin D3-K2) vit X-ajto-Udqah ginseng-herbal 1 tab PO DAILY 08/27/24 10/30/24 Unknown History complex no.62 75 mg tablet Allergies Allergy/AdvReac Type Severity Reaction Status Date / Time bee venom protein (honey bee) Allergy Mild ALGY-Hives Verified 10/28/24 09:25 fentanyl Allergy Unknown HEADACHE, Verified 10/28/24 09:25 VOMITING, STOMACH PAIN morphine Allergy ADR-Headach Verified 10/28/24 09:25 e poison ashley extract AdvReac Mild ADR-Swelling Verified 10/28/24 09:25 of the Eye PFS SIGN BUILDER PFSH: Medical History No pertinent past medical history neghx: htn,dm,thyroid,dvt/pe PCP: Dr. Mckeon-- but cannot be seen my them anymore Surgical History History of laparoscopic appendectomy 09/26/23 dr. mckeon Family History Grandmother Breast cancer Hypertension Uterine cancer Grandfather Hyperlipidemia Hypertension Denies family history of Colon cancer Ovarian cancer Prostate cancer Diabetes Heart disease Thyroid disease Stroke Social History Smoking and tobacco/nicotine status: never used tobacco/nicotine History History History 3 Term 2 0 Miscarriages/Ectopic 0 Living Children 2 Care YANDY Calculator Estimated Delivery Date Method Current WG Current Estimate 10/31/24 LMP (Certain) 39w 6d Other Estimates 11/02/24 Ultrasound #1 39w 4d Specific Issues/Plans anemia --10.7 hemoglobin; declines medical treatment hx PP depression-managed with out medication anxiety/depression-managed without medication obesity CF carrier -father baby declined testing Vitals/I&O/Wt Last Vital Signs Temp 98.0 F 10/30/24 21:50 Pulse 78 10/30/24 21:50 Resp 18 10/30/24 21:50 BP 125/87 10/30/24 21:50 Pulse Ox 98 10/30/24 21:50 O2 Del Method Room Air 10/30/24 21:50 10/30/24 10/30/24 10/31/24 14:59 22:59 06:59 Intake Total 9.75 / 9.75 1334.00 / 1343.75 Balance 9.75 / 9.75 1334.00 / 1343.75 Weight last 48 hrs Weight 238 lb Physical Exam Narrative: Weight 230 lbs; 5?2? General comfortable Lungs: clear Cor: RRR Abd: nontender Cervix: 3 / 50% / -3 / cephalic Ext: normal External monitor: heart tracing good variability, + accelerations Data 10/30/24 12:00 Results Labs OB ([facility]): Obstetrics US 03/01/24 Blood Type O Positive 10/30/24 Antibody Screen Negative 10/30/24 Hct 29.7 % (36-47) L 10/30/24 Hgb 9.30 g/dL (11.27-16.99) L 10/30/24 Rho(D) Type Rh positive 10/30/24 Plt Count 259 10^3/cmm (157-399) 10/30/24 Hep Bs Antigen Non-reactive (Nonreactive) 04/13/24 Hep B Core IgM Ab Non-reactive (Nonreactive) 06/09/23 Hepatitis C Antibody Non-reactive (Nonreactive) 04/13/24 Rubella IgG Antibody 35.4 IU/mL (0.0-10.0) H 04/13/24 RPR Nonreactive (Nonreactive) 04/13/24 HIV 1&2 Ab & HIV 1 Ag Non-reactive (Non-Reactiv) 04/13/24 C.trachomatis RNA (TMA) Not detected (NOT DETECTED) 04/29/24 N.gonorrhoeae RNA (TMA) Not detected (NOT DETECTED) 04/29/24 T. vaginalis Amp RNA Not detected (NOT DETECTED) 04/29/24 Chlamydia/GC Comment See note 04/29/24 Cystic Fibrosis Screen Carrier 04/13/24 Glucose 1 Hr 50 gm 107 mg/dL (85-140) 07/15/24 Hemoglobin A1c 5.1 % (4.0-6.0) 04/13/24 Ser , Semi-Qnt 7818.00 mIU/mL 03/09/24 HCG, Qual Positive (Negative) H 03/23/24 Urine Opiates Screen Negative ng/mL (Negative) 04/13/24 Ur Barbiturates Screen Negative ng/mL (Negative) 04/13/24 Ur Phencyclidine Scrn Negative ng/mL (Negative) 04/13/24 Ur Amphetamines Screen Negative ng/mL (Negative) 04/13/24 U Benzodiazepines Scrn Negative ng/mL (Negative) 04/13/24 Urine Cocaine Screen Negative ng/mL (Negative) 04/13/24 U Marijuana (THC) Screen Negative ng/mL (Negative) 04/13/24 Micro Urine Specimen 08/12/24 A&P Assessment and plan (1) Encounter for induction of labor: 39 w 6 d Admit for induction of labor Fetus reassuring GBS negative Plan start Pitocin Attestations Medical Necessity Statement*: Patient at 39 w 6 d, admitted for induction of labor Coding Level of Care Code Acute Code for Chg Fwd Diagnoses Encounter for induction of labor Z34.90 Time Spent (min) 60
--- NOTE | 2024-10-30 18:05 | PM.DELIVERY ---
Delivery Note: Date of delivery: October 30, 2024 Pre-delivery diagnoses: 39 w 6 d induction of labor Post-delivery diagnoses: 39 w 6 d induction of labor vaginal delivery Procedure: induction of labor vaginal delivery Op report anesthesia: None Delivering Physician: Kervin Fung MD Estimated blood loss (mL): 300 Findings: , vigorous infant Cord gases and blood obtained No episiotomy / lacerations EBL: 300 cc No complications Pre-Delivery Course: normal labor course Delivery: vaginal Post-Delivery Status: good History History History 3 Term 2 0 Miscarriages/Ectopic 0 Living Children 2 A&P Assessment and plan (1) Vaginal delivery: Coding Level of Care Code Acute Code for Chg Fwd Diagnoses Vaginal delivery O80 Time Spent (min) 60
[2024-10-30] MEDS: ondansetron 2 mg/ML SDV 2 mL 4 MG IVP (18:08)
[2024-10-30] MEDS: ketorolac 30 mg/mL INJ IVP (18:22)
[2024-10-30] MEDS: acetaminophen 325 mg Tablet 650 MG PO (18:44)
--- NOTE | 2024-10-30 21:09 | PC.NURSE ---
golf ball sized clot passed into toilet at 2105 fundus firm at this time
[2024-10-30] MEDS: ibuprofen 800 mg tablet PO (23:46)
[2024-10-31 04:00] VITALS: BP 131/90; PULSE 67; RESP 18; TEMP 36.6; TEMP 36.7; O2SAT 98
[2024-10-31] MEDS: acetaminophen 325 mg Tablet 650 MG PO ×2 (04:35→12:10)
[2024-10-31 05:49] LABS: Hematocrit 26.4 % (36-47); Mean Corpuscular HGB Conc 29.5 g/dL (30-55); Mean Corpuscular Hemoglobin 28.2 pg (27-33); Mean Corpuscular Volume 95.3 fl (85-98); Mean Platelet Volume 10.8 fL (7.4-10.4); Platelet Count 203 10^3/cmm (157-399); Red Blood Count 2.77 10^6/uL (3.85-5.65); White Blood Count 12.29 10^3/uL (3.29-11.43)
[2024-10-31] MEDS: ferrous sulfate EC 325 mg Tablet PO (08:02)
[2024-10-31] MEDS: PRENATAL VIT NO.130/IRON/FOLIC 1 EACH TABLET PO (08:02)
[2024-10-31] MEDS: ibuprofen 800 mg tablet PO ×3 (08:02→21:55)
[2024-10-31] MEDS: docusate sodium 100 mg Capsule PO ×2 (08:02→21:55)
[2024-10-31 08:05] VITALS: BP 126/84; PULSE 67; RESP 15
--- NOTE | 2024-10-31 11:50 | P.PN_ITS ---
CIRCUITRY NEGATIVE INSPECTOR Subjective 2 Subjective: Interval history: no c/o no headaches, dizziness, nausea, abdominal pain, bleeding normal lochia eating, voiding, ambulating well Labor: Station: -1 Amniotic Membrane Status: Ruptured Monitor Mode: Palpation Contraction Pattern: Regular Status: Category I Vitals/I&O/Wt Last Vital Signs Temp 98.3 F 11/01/24 16:55 Pulse 77 11/01/24 16:55 Resp 15 11/01/24 16:55 BP 113/77 11/01/24 16:55 Pulse Ox 98 11/01/24 16:55 O2 Del Method Room Air 11/01/24 16:45 Physical Exam 2 Narrative: afebrile, VS normal comfortable, awake, alert Abd: soft, nontender. fundus firm Ext: no edema; nontender Data 10/31/24 05:30 A&P Assessment and plan (1) Vaginal delivery: PPD #1 doing well normal course continue care PDMP PDMP Reviewed: Not Reviewed Attestations 2 Medical Necessity Statement*: patient s/p vaginal delivery, care Coding Level of Care Code Acute Code for Chg Fwd Diagnoses Vaginal delivery O80 Time Spent (min) 30
[2024-10-31 15:50] VITALS: BP 127/93; PULSE 67; RESP 15; O2SAT 98
[2024-10-31 21:07] VITALS: BP 124/73; PULSE 84; RESP 18; TEMP 36.7; O2SAT 99
[2024-11-01 04:00] VITALS: BP 106/60; PULSE 74; RESP 18; TEMP 36.5; O2SAT 98
[2024-11-01] MEDS: iron sucrose 200 MG in sodium chloride 0.9% (100 ml) 100 ML 220 MG IV (08:32)
[2024-11-01] MEDS: docusate sodium 100 mg Capsule PO (08:48)
[2024-11-01] MEDS: ibuprofen 800 mg tablet PO ×2 (08:48→15:34)
[2024-11-01] MEDS: ferrous sulfate EC 325 mg Tablet PO (08:48)
[2024-11-01] MEDS: PRENATAL VIT NO.130/IRON/FOLIC 1 EACH TABLET PO (08:48)
[2024-11-01 09:59] VITALS: BP 108/65; PULSE 88; RESP 16; TEMP 36.6; O2SAT 100
--- NOTE | 2024-11-01 10:45 | PM.OBGYDC ---
Discharge Providers TILE INSTALLER Date of Admission: 10/30/24 13:46 Date of Discharge: 11/01/24 Attending Provider at Admission: Kervin Fung MD Attending Provider at Discharge: Kervin Fung MD Consults: none Primary TILE INSTALLER: Sylvester Millard MD Primary Care Provider: Sylvester Woodson [facility] [place] Diagnoses at Discharge Discharge Diagnosis (1) Vaginal delivery: Details from hospital stay: 19 y.o. at 39 w 6 d no complications admitted for induction of labor patient had normal labor course fetus was reassuring throughout patient progressed to spontaneous vaginal delivery without any lacerations patient did well and was discharged to home on the second day Status: Acute Reason for Visit Reason for Visit: Induction of Labor Brief History: 19 y.o. at 39 w 6 d no complications admitted for induction of labor Hospital Course Hospital Course 19 y.o. at 39 w 6 d no complications admitted for induction of labor patient had normal labor course fetus was reassuring throughout patient progressed to spontaneous vaginal delivery without any lacerations patient did well and was discharged to home on the second day Information Peripartum Data: Delivery Method: Vaginal Laceration description: None Episiotomy description: None complications: none Physical Exam Narrative: afebrile, VS normal comfortable, awake, alert Abd: soft, nontender. fundus firm Ext: no edema; nontender History History History 3 Term 2 0 Miscarriages/Ectopic 0 Living Children 2 Discharge Data Studies Completed and Pending Laboratory Results WBC 12.29 10^3/uL (3.29-11.43) H 10/31/24 05:30 Corrected WBC Cancelled 10/30/24 11:35 RBC 2.77 10^6/uL (3.85-5.65) L 10/31/24 05:30 Hgb 7.80 g/dL (11.27-16.99) L 10/31/24 05:30 Hct 26.4 % (36-47) L 10/31/24 05:30 MCV 95.3 fl (85-98) D 10/31/24 05:30 MCH 28.2 pg (27-33) 10/31/24 05:30 MCHC 29.5 g/dL (30-55) L D 10/31/24 05:30 RDW 14.0 % (12.1-15.1) 10/31/24 05:30 Plt Count 203 10^3/cmm (157-399) 10/31/24 05:30 MPV 10.8 fL (7.4-10.4) H 10/31/24 05:30 Gran % Cancelled 10/30/24 11:35 Neut % (Auto) 70.0 % 10/30/24 12:00 Lymph % (Auto) 23.9 % 10/30/24 12:00 [place] % (Auto) 5.0 % 10/30/24 12:00 Eos % (Auto) 0.4 % 10/30/24 12:00 Baso % (Auto) 0.2 % 10/30/24 12:00 Neut # (Auto) 5.88 10^3/uL (1.8-7.7) 10/30/24 12:00 Lymph # (Auto) 2.0 10^3/uL (0.8-4.8) 10/30/24 12:00 [place] # (Auto) 0.4 10^3/uL (0.2-0.9) 10/30/24 12:00 Eos # (Auto) 0.0 10^3/uL (0.0-0.8) 10/30/24 12:00 Baso # (Auto) 0.0 10^3/uL (0.0-0.1) 10/30/24 12:00 Absolute Gran (auto) Cancelled 10/30/24 11:35 Nucleated RBC % (auto) 0 % 10/30/24 12:00 Nucleated RBCs # 0.0 /100WBC 10/30/24 12:00 Blood Type O Positive 10/30/24 11:35 Rho(D) Type Rh positive 10/30/24 11:35 Antibody Screen Negative 10/30/24 11:35 Procedures Performed induction of labor vaginal delivery Vitals Last Vital Signs Temp 98.3 F 11/01/24 16:55 Pulse 77 11/01/24 16:55 Resp 15 11/01/24 16:55 BP 113/77 11/01/24 16:55 Pulse Ox 98 11/01/24 16:55 O2 Del Method Room Air 11/01/24 16:45 Results Labs OB ([facility]): Obstetrics US 03/01/24 Blood Type O Positive 10/30/24 Antibody Screen Negative 10/30/24 Hct 35.2 % (36-47) L 11/10/24 Hgb 10.80 g/dL (11.27-16.99) L 11/10/24 Rho(D) Type Rh positive 10/30/24 Plt Count 442 10^3/cmm (157-399) H 11/10/24 Hep Bs Antigen Non-reactive (Nonreactive) 04/13/24 Hep B Core IgM Ab Non-reactive (Nonreactive) 06/09/23 Hepatitis C Antibody Non-reactive (Nonreactive) 04/13/24 Rubella IgG Antibody 35.4 IU/mL (0.0-10.0) H 04/13/24 RPR Nonreactive (Nonreactive) 04/13/24 HIV 1&2 Ab & HIV 1 Ag Non-reactive (Non-Reactiv) 04/13/24 C.trachomatis RNA (TMA) Not detected (NOT DETECTED) 04/29/24 N.gonorrhoeae RNA (TMA) Not detected (NOT DETECTED) 04/29/24 T. vaginalis Amp RNA Not detected (NOT DETECTED) 04/29/24 Chlamydia/GC Comment See note 04/29/24 Cystic Fibrosis Screen Carrier 04/13/24 Glucose 1 Hr 50 gm 107 mg/dL (85-140) 07/15/24 Hemoglobin A1c 5.1 % (4.0-6.0) 04/13/24 Ser , Semi-Qnt 7818.00 mIU/mL 03/09/24 HCG, Qual Positive (Negative) H 03/23/24 Urine Opiates Screen Negative ng/mL (Negative) 04/13/24 Ur Barbiturates Screen Negative ng/mL (Negative) 04/13/24 Ur Phencyclidine Scrn Negative ng/mL (Negative) 04/13/24 Ur Amphetamines Screen Negative ng/mL (Negative) 04/13/24 U Benzodiazepines Scrn Negative ng/mL (Negative) 04/13/24 Urine Cocaine Screen Negative ng/mL (Negative) 04/13/24 U Marijuana (THC) Screen Negative ng/mL (Negative) 04/13/24 Micro Urine Specimen 08/12/24 Pap Smear Interpret See note 12/08/24 Discharge Plan Discharge Patient Disposition: Home Condition: Stable Prescriptions: New Hematogen FA 200-250-0.01-1 mg capsule 1 cap PO DAILY Qty: 30 6RF Continued Saccharomyces boulardii [Daily Probiotic (S. boulardii)] 250 mg capsule 250 mg PO DAILY vit [id number] 75 mg tablet 1 tab PO DAILY No Action hydrocortisone acetate [Anusol-HC] 25 mg suppository 25 mg MA DAILY 84 Days Qty: 100 0RF docusate sodium [Dulcolax Stool Softener (dss)] 100 mg capsule 100 mg PO BID PRN (Reason: constipation) Qty: 60 2RF Discharge Orders: Discharge Order (Routine); Ordered 11/01/24 Ordered By: Kervin Fung Referrals: Kervin Fung MD [Physician] - 11/10/24 1:30 pm Discharge Diet: Usual diet Discharge Activity: Increase activity as tolerated Patient Instructions: Depression (DC), Bleeding (DC), Preeclampsia and Eclampsia After Delivery (GEN), Vaginal Delivery (DC), Hemorrhage (DC), OB Discharge Report, OB Food/Drug Interaction Guide, Opioid Safety Activity Restrictions/Additional Instructions: Return in 1-2 weeks for followup call / return if dizziness, weakness Discharge Attestations TILE INSTALLER Time Spent in Discharge Care*: less than 30 min Coding Level of Care Code Acute Code for Chg Fwd Diagnoses Vaginal delivery O80 Time Spent (min) 20
[2024-11-01] MEDS: ondansetron 2 mg/ML SDV 2 mL 4 MG IVP (11:56)
[2024-11-01] MEDS: acetaminophen 325 mg Tablet 650 MG PO (11:56)
[2024-11-01 16:45] VITALS: BP 113/77; PULSE 77; RESP 15; TEMP 36.8; O2SAT 98
[2024-11-01 16:55] VITALS: BP 113/77; PULSE 77; RESP 15; TEMP 36.8; O2SAT 98
== END 2024-11-01 16:55 | disposition home or self-care (01) | DRG 806 ==
LOC: OPOB 13:46 → OBGYN 13:46
PROVIDERS: Admitting Provider Obstetrics & Gynecology; PCP Pharmacist; Visit Provider Obstetrics & Gynecology
DX: O99.02 Anemia complicating childbirth (principal); O99.834 Other infection carrier state complicating childbirth; Z37.0 Single live birth; O99.344 Other mental disorders complicating childbirth; O99.214 Obesity complicating childbirth; Z3A.39 39 weeks gestation of pregnancy; Z14.1 Cystic fibrosis carrier; F41.9 Anxiety disorder, unspecified; F32.A Depression, unspecified
CPT/HCPCS: 36415; 59409; 85025; 85027; 86850; 86900; 96374; 96376; 98960; J1756; J1885; J2405; J2590; J7121

== ENCOUNTER → 2024-11-10 14:05 | Outpatient (BNVA) | payer BC, MEDICAID, SELFPAY | PROVIDERS: PCP Pharmacist; Visit Provider Obstetrics & Gynecology | DX: O90.81 Anemia of the puerperium (principal) | CPT/HCPCS: 85025 ==

== ENCOUNTER → 2024-12-08 14:10 | Outpatient (BNVA) | payer BC, MEDICAID, SELFPAY | PROVIDERS: PCP Pharmacist; Visit Provider Obstetrics & Gynecology | DX: Z01.419 Encounter for gynecological examination (general) (routine) without abnormal findings (principal) | CPT/HCPCS: 87624 ==

== ENCOUNTER 2025-02-04 13:09 | Emergency (ER) | payer BC, MEDICAID, SELFPAY ==
[2025-02-04 13:11] VITALS: BP 117/74; PULSE 132; RESP 18; TEMP 37.6; O2SAT 99
--- NOTE | 2025-02-04 13:48 | XR_ITS ---
WS: [id number] Exam: XR chest 1V portable [id number] Date/Time of Exam: 02/04/2025 1:56 PM Reason For Exam: Shortness of breath Comparison 01/24/2014. Lungs are clear and fully inflated. Normal cardiomediastinal silhouette. Unremarkable bony structures. No pleural effusion. XR/XR chest 1V portable [id number] IMPRESSION: 1. Normal chest.
--- NOTE | 2025-02-04 13:49 | ED_ITS ---
HPI - General Adult 2 General: Chief complaint: General Medical Stated complaint: Headache / fever Time Seen by Provider: 02/04/25 13:42 History of Present Illness: 19-year-old female who is currently markie st-feeding 2-month-old who presents emergency room with sick symptoms today. She said she has had a headache. Nausea. Bilateral lower flank pain. She has a swollen lymph node on the right side of her neck. She said she had fever today to 101.3. She has not take anything because she was concerned what would interfere with her breast-feeding. No dysuria. She is little bit tachycardic on presentation. Related Data Previous Rx's ?Medication ?Instructions ?Recorded cephalexin 500 mg tablet 500 mg PO TID 7 days #21 tab s 02/04/25 dexamethasone 6 mg tablet 6 mg PO DAILY 5 days #5 tabs 02/04/25 Allergies Allergy/AdvReac Type Severity Reaction Status Date / Time bee venom protein (honey bee) Allergy Mild ALGY-Hives Verified 02/04/25 13:17 fentanyl Allergy Unknown HEADACHE, Verified 02/04/25 13:17 VOMITING, STOMACH PAIN morphine Allergy ADR-Headach Verified 02/04/25 13:17 e poison ashley extract AdvReac Mild ADR-Swelling Verified 02/04/25 13:17 of the Eye Review of Systems 2 Narrative: Constitutional symptoms: Negative except as documented in HPI. Skin symptoms: Negative except as documented in HPI. Eye symptoms: Negative except as documented in HPI. ENMT symptoms: Negative except as documented in HPI. Respiratory symptoms: Negative except as documented in HPI. Cardiovascular symptoms: Negative except as documented in HPI. Gastrointestinal symptoms: Negative except as documented in HPI. Genitourinary symptoms: Negative except as documented in HPI. Musculoskeletal symptoms: Negative except as documented in HPI. Neurologic symptoms: Negative except as documented in HPI. Psychiatric symptoms: Negative except as documented in HPI. Endocrine symptoms: Negative except as documented in HPI. PFSH ED 2 PFSH: Medical History (Updated 02/04/25 @ 15:41 by Airam Guillaume MD) Vaginal delivery Encounter for induction of labor No pertinent past medical history neghx: htn,dm,thyroid,dvt/pe PCP: Dr. Mckeon-- but cannot be seen my them anymore Surgical History History of laparoscopic appendectomy 09/26/23 dr. mckeon Family History Grandmother Breast cancer Hypertension Uterine cancer Grandfather Hyperlipidemia Hypertension Denies family history of Colon cancer Ovarian cancer Prostate cancer Diabetes Heart disease Thyroid disease Stroke Social History Smoking and tobacco/nicotine status: never used tobacco/nicotine Physical Exam 2 Narrative: EXAM NARRATIVE: General: Alert, no acute distress. Skin: Warm, dry. Head: Normocephalic, atraumatic. Neck: Supple, trachea midline. Eye: Extraocular movements are intact. Ears, nose, mouth and throat: Tacky oral mucosa. Right TM is quite erythematous and tender. Drum is bulging. Cardiovascular: Regular, tachycardic, normal peripheral perfusion. Respiratory: Lungs are clear to auscultation, respirations are non-labored, breath sounds are equal, Symmetrical chest wall expansion. Gastrointestinal: Soft, Nontender, Non distended Musculoskeletal: Normal ROM, no deformity. Neurological: Alert and oriented, No focal neurological deficit observed. Psychiatric: Cooperative, appropriate mood & affect. Course 2 Vital Signs: Vital signs: Vital Signs Temperature 99.7 F H 02/04/25 13:11 Pulse Rate 104 H 02/04/25 14:55 Respiratory Rate 18 02/04/25 13:11 Blood Pressure 115/73 02/04/25 14:55 Pulse Oximetry 97 02/04/25 14:55 Oxygen Delivery Me thod Room Air 02/04/25 14:55 MDM - General Adult Medical Decision Making Medical decision making: Differential diagnosis including but not limited to and based on the above HPI, review of systems and physical exam: Patient with fever, cough, ear pain, aches. Concern for UTI, viral illness, flu COVID RSV. Otitis. Orders placed to evaluate differential diagnosis based on the above differential, HPI and physical exam Chest x-ray: No acute process. No infiltrate. No pneumothorax. This was reviewed and interpreted by myself the emergency room physician. I also reviewed the radiology report. Lab Review: Laboratory results were reviewed and interpreted by myself the emergency room physician. No leukocytosis. No anemia. No renal failure. Patient is positive for COVID. Urinalysis is negative for infection. I reviewed the patient's medical record. Reexamination: Patient remained stable. No increased work of breathing. No altered mental status. No focal motor deficits. Assessment and plan: COVID-19 Dehydration Otitis media Fever ? IV fluids, IV Zofran, IV Tylenol and a normal saline bolus in the emergency room. - Discharged home - Discussed plan with patient. Answered any questions. - Evaluation and treatment of this problem were appropriate in the emergency setting. Lab Data 02/04/25 13:58 02/04/25 13:58 Radiology Impressions Chest X-Ray 02/04/25 13:48 IMPRESSION: 1. Normal chest. Laboratory Results WBC 9.02 10^3/uL (3.29-11.43) 02/04/25 13:58 RBC 4.26 10^6/uL (3.85-5.65) 02/04/25 13:58 Hgb 12.40 g/dL (11.27-16.99) 02/04/25 13:58 Hct 37.6 % (36-47) 02/04/25 13:58 MCV 88.3 fl (85-98) 02/04/25 13:58 MCH 29.1 pg (27-33) 02/04/25 13:58 MCHC 33.0 g/dL (30-55) 02/04/25 13:58 RDW 13.6 % (12.1-15.1) 02/04/25 13:58 Plt Count 273 10^3/cmm (157-399) 02/04/25 13:58 MPV 9.8 fL (7.4-10.4) 02/04/25 13:58 Neut % (Auto) 87.9 % 02/04/25 13:58 Lymph % (Auto) 6.0 % 02/04/25 13:58 [place] % (Auto) 5.3 % 02/04/25 13:58 Eos % (Auto) 0.2 % 02/04/25 13:58 Baso % (Auto) 0.2 % 02/04/25 13:58 Neut # (Auto) 7.92 10^3/uL (1.8-7.7) H 02/04/25 13:58 Lymph # (Auto) 0.5 10^3/uL (0.8-4.8) L 02/04/25 13:58 [place] # (Auto) 0.5 10^3/uL (0.2-0.9) 02/04/25 13:58 Eos # (Auto) 0.0 10^3/uL (0.0-0.8) 02/04/25 13:58 Baso # (Auto) 0.0 10^3/uL (0.0-0.1) 02/04/25 13:58 Nucleated RBC % (auto) 0 % 02/04/25 13:58 Nucleated RBCs # 0.0 /100WBC 02/04/25 13:58 Sodium 139 mmol/L (136-145) 02/04/25 13:58 Potassium 3.5 mmol/L (3.5-5.1) 02/04/25 13:58 Chloride 100 mmol/L (98-107) 02/04/25 13:58 Carbon Dioxide 23 mmol/L (22-29) 02/04/25 13:58 Anion Gap 19.5 (5-19) H 02/04/25 13:58 BUN 11 mg/dL (6-20) 02/04/25 13:58 Creatinine 0.7 mg/dL (0.5-0.9) 02/04/25 13:58 GFR Calculation 105.6 mL/min (90-130) 02/04/25 13:58 Glucose 106 mg/dL (65-115) 02/04/25 13:58 Calculated Osmolality 288 mOsm/kg (285-295) 02/04/25 13:58 Lactic Acid 1.4 mmol/L (0.5-2.2) 02/04/25 13:58 Calcium 9.5 mg/dL (8.5-10.5) 02/04/25 13:58 Total Bilirubin 0.3 mg/dL (0.15-1.2) 02/04/25 13:58 AST 22 U/L (0-32) 02/04/25 13:58 ALT 41 U/L (0-33) H 02/04/25 13:58 Alkaline Phosphatase 137 U/L (35-105) H 02/04/25 13:58 C-Reactive Protein 20.0 mg/L (0.0-4.9) H 02/04/25 13:58 Total Protein 7.6 g/dL (6.6-8.7) 02/04/25 13:58 Albumin 4.7 g/dL (3.5-5.2) 02/04/25 13:58 Globulin 2.9 g/dL (1.3-4.6) 02/04/25 13:58 Urine Color Yellow (Yellow) 02/04/25 Unknown Urine Appearance Clear (CLEAR) 02/04/25 Unknown Urine pH 6.0 (5-7) 02/04/25 Unknown Ur Specific [place] 1.009 (1.005-1.030) 02/04/25 Unknown Urine Protein Negative (Negative) 02/04/25 Unknown Urine Glucose (UA) Negative (Normal) 02/04/25 Unknown Urine Ketones Trace (Negative) 02/04/25 Unknown Urine Blood Negative (Negative) 02/04/25 Unknown Urine Nitrate Negative (Negative) 02/04/25 Unknown Urine Bilirubin Negative (Negative) 02/04/25 Unknown Urine Urobilinogen 0.2 mg/dL (Negative) 02/04/25 Unknown Ur Leukocyte Esterase Negative (Negative) 02/04/25 Unknown Urine RBC 0-2 /hpf (0-2) 02/04/25 Unknown Urine WBC 0-5 /hpf (0-5) 02/04/25 Unknown Ur Squamous Epith Cells 0-5 /hpf (0-5) 02/04/25 Unknown Amorphous Sediment Not Reportable 02/04/25 Unknown Urine Bacteria None seen /hpf (NONE) 02/04/25 Unknown Hyaline Casts 0-4 /lpf H 02/04/25 Unknown Influenza A (PCR) Negative (Negative) 02/04/25 14:02 Influenza Type B (PCR) Negative (Negative) 02/04/25 14:02 RSV (PCR) Negative (Negative) 02/04/25 14:02 All radiology interpretation(s) finalized by discharge Discharge Plan Discharge Patient Disposition: Home Clinical Impression: COVID-19, Otitis media, Fever, Dehydration Condition: Stable Prescriptions: New dexamethasone 6 mg tablet 6 mg PO DAILY 5 Days Qty: 5 0RF cephalexin 500 mg tablet 500 mg PO TID 7 Days Qty: 21 0RF Discharge Orders: Discharge ED (Routine); Ordered 02/04/25 Ordered By: Airam Guillaume Discharge Diet: Usual diet Discharge Activity: Increase activity as tolerated Patient Instructions: Opioid Safety, Pain Management Activity Restrictions/Additional Instructions: Thank you for choosing [facility] for your healthcare needs today. You have been screened and evaluated and felt safe for discharge. Health conditions do change or evolve sometimes and as such it is important that you follow up with your Primary Doctor to be re checked, 3-5 days is a general good time frame for follow up. 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
[2025-02-04 14:23] LABS: Basophils % 0.2 %; Eosinophils % 0.2 %; Hematocrit 37.6 % (36-47); Lymphocytes # 0.5 10^3/uL (0.8-4.8); Mean Corpuscular Hemoglobin 29.1 pg (27-33); Mean Corpuscular Volume 88.3 fl (85-98); Mean Platelet Volume 9.8 fL (7.4-10.4); Monocytes # 0.5 10^3/uL (0.2-0.9); Monocytes % 5.3 %; Neutrophils # 7.92 10^3/uL (1.8-7.7); Neutrophils % 87.9 %; Nucleated Red Blood Cells % 0 %; Platelet Count 273 10^3/cmm (157-399); Red Blood Count 4.26 10^6/uL (3.85-5.65); Red Cell Distribution Width 13.6 % (12.1-15.1); White Blood Count 9.02 10^3/uL (3.29-11.43)
[2025-02-04 14:28] LABS: Alanine Aminotransferase 41 U/L (0-33); Albumin Level 4.7 g/dL (3.5-5.2); Alkaline Phosphatase 137 U/L (35-105); Anion Gap 19.5 (5-19); Aspartate Amino Transferase 22 U/L (0-32); Blood Urea Nitrogen 11 mg/dL (6-20); Calcium 9.5 mg/dL (8.5-10.5); Carbon Dioxide 23 mmol/L (22-29); Chloride 100 mmol/L (98-107); Creatinine Clr Calc Pharmacy 135.7818; Globulin 2.9 g/dL (1.3-4.6); Glomerular Filtration Rate 105.6 mL/min (90-130); Glucose 106 mg/dL (65-115); Osmolality Calculated 288 mOsm/kg (285-295); Potassium 3.5 mmol/L (3.5-5.1); Sodium 139 mmol/L (136-145); Total Bilirubin 0.3 mg/dL (0.15-1.2); Total Protein 7.6 g/dL (6.6-8.7)
[2025-02-04 14:29] LABS: Lactic Sepsis W/Reflex 1.4 mmol/L (0.5-2.2)
[2025-02-04] MEDS: acetaminophen 1,000 MG/100 ML PIGGYBACK 400 MG IV (14:54)
[2025-02-04 14:55] VITALS: BP 115/73; PULSE 104; O2SAT 97
[2025-02-04] MEDS: sodium chloride 0.9% 1,000 ML 999 ML IV (14:55)
[2025-02-04] MEDS: ondansetron 2 mg/ML SDV 2 mL 4 MG IVP (14:55)
[2025-02-04 15:02] LABS: Bilirubin Urine Negative (Negative); Blood Urine Negative (Negative); Glucose Urine UA Negative (Normal); Ketones Urine Trace (Negative); Leukocyte Esterase Urine Negative (Negative); Nitrate Urine Negative (Negative); Protein Urine Negative (Negative); Specific Gravity, Urine 1.009 (1.005-1.030); Urine Appearance Clear (CLEAR); Urine Color Yellow (Yellow); Urobilinogen Urine 0.2 mg/dL (Negative)
[2025-02-04 15:07] LABS: Bacteria Urine None Seen /hpf; Hyaline Casts Urine 0-4 /lpf; RBC Urine 0-2 /hpf (0-2); Squamous Epithelial Cell Urine 0-5 /hpf (0-5); WBC Urine 0-5 /hpf (0-5)
[2025-02-04] MEDS: cefTRIAXone 1,000 mg SDV 1000 MG IVP (15:36)
[2025-02-04 15:38] LABS: Influenza A NEGATIVE (Negative); Influenza B NEGATIVE (Negative); Respiratory Syncytial Virus Ce NEGATIVE (Negative)
[2025-02-04 16:09] LABS: SARS-CoV-2 PCR Positive (Negative)
== END 2025-02-04 16:35 | disposition home or self-care (01) ==
PROVIDERS: Emergency Provider Emergency Medicine
DX: U07.1 COVID-19 (principal); H66.90 Otitis media, unspecified, unspecified ear; R50.9 Fever, unspecified; E86.0 Dehydration; Z11.52 Encounter for screening for COVID-19
CPT/HCPCS: 36415; 71045; 80053; 81001; 83605; 85025; 86140; 87040; 87637; 96365; 96375; 99284; J0131; J0696; J2405; J7030

== ENCOUNTER 2025-05-17 18:57 | Emergency (ER) | payer BC, MEDICAID, SELFPAY ==
--- OUTSIDE RECORDS SUMMARY | 2021-05-30 06:45 | XMS_ITS | Continuity of Care Document ---
Author Organization [facility] Address [id number] [address] Phone Care Team Providers Care Plaster Mechanic Name Role Phone Freddy Carvajal DDS Unavailable Unavailable Allergies, Adverse Reactions, Alerts Substance Reaction Status Criticality fentanyl Active No Information Procedures Procedure Date Limited Oral Evaluation Problem Focused Extraction, Erupted Tooth Or Exposed Gema t (Elevati Extraction, Erupted Tooth Or Exposed Gema t (Elevati EDR Approval Note Intraoral Periapical First Film Extraction, Erupted Tooth Or Exposed Gema t (Elevati Extraction, Erupted Tooth Or Exposed Gema t (Elevati Extraction, Erupted Tooth Or Exposed Gema t (Elevati Limited Oral Evaluation Problem Focused EDR Approval Note Advance Directives Directive Yes / No Effective Date File Name No Information Encounters Encounter Description Practice Location Reason(s) For Visit Diagnoses Date Provider Providers Copied on Encounter [facility], [id number] [place], [place], [id number], [place] tel:[phone] [facility] Encounter for dental exam and cleaning w/o abnormal findings Alena Hayes. [address] [place], [place], [id number], [place]. tel:[phone] Referring Provider: Freddy Olguin, [address] [place], [address]. tel:[phone] [facility], [id number], [place], [place], [id number], [place] tel:[phone] [facility] Encounter for dental exam and cleaning w/o abnormal findings Alena Hayes. [address] [place], [place], [id number], [place]. tel:[phone] Referring Provider: Freddy Olguin, [address] [place], [address]. tel:[phone] Family History Family Member Type Diagnosis Age At Onset No Information Payers Payer name Insurance type Covered green party ID Simoneerich pabloperla(jose) [facility] [id number] Social History Type Description Quantity Date Captured Comments Alcohol Use Details Unknown Caffeine Use Details Unknown Tobacco Use Status No Information Smoking Status No Information Sex Female Sexual Orientation Heterosexual Gender Identity Female Vital Signs Date / Time: Height Weight BMI Pulse Rate Blood Pressure Temperature Respiratory Rate Body Surface Area Head Circumference Head Circ. Percentile Wt./Luis Antonio. Percentile BMI percentile Pulse Ox Inhaled Ox 11:38 AM 105/72 mm[Hg] Chief Complaint And Reason For Visit No Information Reason For Referral Reason For Referral No Information History Of Present Illness Encounter Date Complaint History Of Prese nt Illness No Information Functional Status Date Functional Assessmen t No Information Instructions Date Instruction Additional Infor mation Lifestyle education Related to D ental Examination Lifestyle education Related to D ental Examination Assessments Type Assessment Date No Information Patient Care Teams Name Effective Dates (start - stop) Status Members No Information
[2025-05-17 19:01] VITALS: BP 134/90; PULSE 98; O2SAT 100
[2025-05-17] MEDS: HYDROmorphone 0.5 MG/0.5 ML INJ IVP (19:18)
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
[2025-05-17 19:20] VITALS: BP 121/85; PULSE 89; RESP 16; O2SAT 100
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
[2025-05-17 20:28] VITALS: BP 121/79; PULSE 89; RESP 20; O2SAT 100
== END 2025-05-17 20:29 ==
PROVIDERS: Emergency Provider Emergency Medicine
DX: T23.291A Burn of second degree of multiple sites of right wrist and hand, initial encounter (principal); T20.29XA Burn of second degree of multiple sites of head, face, and neck, initial encounter; T20.212A Burn of second degree of left ear [any part, except ear drum], initial encounter; T20.211A Burn of second degree of right ear [any part, except ear drum], initial encounter; X04.XXXA Exposure to ignition of highly flammable material, initial encounter
CPT/HCPCS: 36415; 71045; 96374; 99284; J1171